=== PATIENT | male | born 1955 | race African-American/Black ===

== ENCOUNTER 2020-04-05 18:06 | Inpatient (IN) | payer OTHER ==
[~2020-04-05] VITALS: Ht 189.2 cm; Wt 92.7 kg
--- NOTE | 2020-04-05 18:31 | PHYS DOC ---
General Adult EDM: Chief Complaint: NAUSEA/VOMITING/DIARRHA HPI: HPI: 64-year-old male past medical history significant for hypertension and alcoholism, presents the ED with complaints of dark coffee-ground emesis that started earlier today, reports history of esophageal varices. Patient is a very poor historian but is alert and oriented. Patient reports his last drink was 2 nights ago although he smells of alcohol. States he has been drinking for the past 2 weeks but prior to this was clean for a year. Reports daily alcohol dependence for at least 30 years. Denies any history of blood transfusions or known cirrhosis such that he was warned of liver failure and need for liver transplant. Reports normal brown color stool. States he did pass out at home but does not think he hit his head. Drinks 1-2 pints of vodka per day. Review of Systems: Review of Systems: Constitutional: Denies fever or chills. [] Eyes: Denies change in visual acuity. [] HENT: Denies nasal congestion or sore throat. [] Respiratory: Denies cough or shortness of breath or hemoptysis Cardiovascular: Denies chest pain or edema. [] GI: Denies diarrhea, or constipation : Denies dysuria or hematuria Musculoskeletal: Denies back pain or joint pain. [] Integument: Denies rash or diaphoresis Neurologic: Denies headache, focal weakness or sensory changes or neck stiffness Endocrine: Denies polyuria or polydipsia. [] Lymphatic: Denies swollen glands. [] Psychiatric: Denies depression or anxiety. [] Heart Score: Risk Factors: Risk Factors: DM, Current or recent (<one month) smoker, HTN, HLP, family history of CAD, obesity. Risk Scores: Score 0 - 3: 2.5% MACE over next 6 weeks - Discharge Home Score 4 - 6: 20.3% MACE over next 6 weeks - Admit for Clinical Observation Score 7 - 10: 72.7% MACE over next 6 weeks - Early Invasive Strategies Allergies: Allergies: Allergies Coded Allergies Type Severity Reaction Last Updated Verified No Known Drug Allergies 04/05/20 No Physical Exam: PE: Constitutional: Smells of alcohol, thin frail appearing-does not appear in good health, coffee-ground emesis in basin approximately 75 cc, no active hematemesis HENT: Normocephalic, atraumatic, bilateral external ears normal, oropharynx dry w/dried coffee-ground blood in oral cavity, Eyes: EOMI, conjunctiva slightly yellow/jaundice with arcus senilus, no discharge. [] Neck: Normal range of motion, supple, no stridor. [] Cardiovascular: S1 and S2 present Lungs & Thorax: Speaking in full sentences, bilateral equal chest rise Abdomen: Bowel sounds normal, soft, Skin: Warm, dry, no erythema, no rash. [] Back: No tenderness, no CVA tenderness. [] Extremities: No tenderness, no cyanosis, no clubbing, ROM intact, no edema. [] Neurologic: Alert and oriented X 3, normal motor function, normal sensory function, no focal deficits noted. [] Psychologic: Affect normal, judgement normal, mood normal. [] EKG: EKG: Sinus rhythm 94 bpm, left axis deviation, QTC 450, possible T wave inversions 3 and aVF, no ST elevations or ST depressions, patient with no active chest pain Radiology/Procedures: Radiology/Procedures: []IMAGING REPORT Signed PATIENT: MOHSEN MANCINI ACCOUNT: [id number] : 1955 LOCATION: ER AGE: 64 SEX: M EXAM STATUS: REG ER ORD. PHYSICIAN: CATRACHITA BAKER DO REASON: syncope PROCEDURE: CT HEAD WO CONTRAST EXAM: CT head without contrast INDICATION: Syncope COMPARISON: None TECHNIQUE: Axial CT imaging through the head without intravenous contrast. Coronal reformats were obtained. One or more of the following individualized dose reduction techniques were utilized for this examination: 1. Automated exposure control 2. Adjustment of the mA and/or kV according to patient size 3. Use of iterative reconstruction technique. FINDINGS: The ventricles and sulci are mildly enlarged, reflecting age-related volume loss. Ceballos-white matter differentiation is maintained. There is no intracranial hemorrhage, acute infarct, or mass lesion. Basal cisterns are clear. The skull and scalp are intact. Paranasal sinuses and mastoid air cells are clear. Globes and orbits are intact.. IMPRESSION: No acute intracranial abnormality. Electronically signed by: Elba Morrell MD (04/05/2020 7:37 PM) [id number] DICTATED and SIGNED BY: ELBA MORRELL MD DATE: 04/05/201936 IMAGING REPORT Signed PATIENT: MOHSEN MANCINI ACCOUNT: [id number] : 1955 LOCATION: ER AGE: 64 SEX: M EXAM STATUS: REG ER ORD. PHYSICIAN: CATRACHITA BAKER DO REASON: upper gi bleed PROCEDURE: PORTABLE CHEST 1V EXAM: PORTABLE CHEST 1V 04/05/2020 6:34 PM CLINICAL INDICATION:Upper GI bleed COMPARISON:None TECHNIQUE:AP upright view of the chest FINDINGS:The cardiomediastinal silhouette is normal. Lungs are hypoexpanded. No consolidation, pleural effusion, or pneumothorax. No acute osseous abnormality. IMPRESSION:No acute cardiopulmonary abnormality. Electronically signed by: Elba Morrell MD (04/05/2020 8:59 PM) [id number] DICTATED and SIGNED BY: ELBA MORRELL MD DATE: 04/05/202058 Course & Med Decision Making: Course & Med Decision Making Pertinent Labs and Imaging studies reviewed. (See chart for details) Concern for upper GI bleed with active coffee-ground emesis, resolved with IV antiemetics. Started on PPI drip and broad-spectrum antibiotics given bandemia (meets sirs, no source, cxr normal, ua pending). I discussed patient's care with CHRIS Valle. Will admit n.p.o. on IV fluids to medical service for further medical management. We will also consult nephrology given renal insufficiency, no prior baseline for comparison, potassium 5.3. Patient also intoxicated. Patient stable at time of admission and agrees with this plan. I have spoken with the patient and/or caregivers. I have explained the patient's condition, diagnosis and treatment plan based on the information available to me at this time. I have answered the patient's and/or caregivers questions and answered any concerns. The patient and/or caregivers have as good an understanding of the patient's diagnosis, condition and treatment plan as can be expected at this point. The patient has been stabilized within the capability of the emergency department. The patient will be transported for further care and management or will be moved to an observation or inpatient service. I have communicated with the staff or medical practitioner taking over this patient's care. Dragon Disclaimer: Dragon Disclaimer: This electronic medical record was generated, in whole or in part, using a voice recognition dictation system. Departure Departure Impression: Primary Impression: Upper GI bleed Additional Impressions: Renal insufficiency Hyperkalemia Alcohol intoxication Bandemia without diagnosis of specific infection Disposition: 09 ADMITTED INPT THIS HOSP Admitting Physician: GOLDEN (Dr. Pascal) Condition: GUARDED PELONCATRACHITA Apr 05, 2020 18:31
[2020-04-05] MEDS ORDERED: PANTOPRAZOLE IV PUSH 40 MG VIAL. IVP ONE (18:45)
[2020-04-05] MEDS: PANTOPRAZOLE SODIUM IV DRIP 80 MG in IV NORMAL SALINE 100ML 100 ML IV SCH (18:51)
[2020-04-05] MEDS ORDERED: METOCLOPRAMIDE HCL 10 MG/2 ML VIAL. IVP ONE (19:00)
[2020-04-05] MEDS ORDERED: FAMOTIDINE 20 MG/2 ML VIAL IVP ONE (19:00)
[2020-04-05] MEDS ORDERED: MULTIVIT INFUSN,ADULT 4,VIT K 10 ML, THIAMINE INJ 100 MG, FOLIC ACID INJ 1 MG in IV NOR... IV ONE (19:00)
--- NOTE | 2020-04-05 19:40 | RAD ---
EXAM: CT head without contrast INDICATION: Syncope COMPARISON: None TECHNIQUE: Axial CT imaging through the head without intravenous contrast. Coronal reformats were obtained. One or more of the following individualized dose reduction techniques were utilized for this examination: 1. Automated exposure control 2. Adjustment of the mA and/or kV according to patient size 3. Use of iterative reconstruction technique. FINDINGS: The ventricles and sulci are mildly enlarged, reflecting age-related volume loss. Ceballos-white matter differentiation is maintained. There is no intracranial hemorrhage, acute infarct, or mass lesion. Basal cisterns are clear. The skull and scalp are intact. Paranasal sinuses and mastoid air cells are clear. Globes and orbits are intact.. IMPRESSION: No acute intracranial abnormality. Electronically signed by: Elba Morrell MD (04/05/2020 7:37 PM) [id number]
[2020-04-05 20:12] LABS: FECAL OB PT NEGATIVE (NEG)
[2020-04-05 20:14] LABS: BASO # 0.1 x10^3/uL (0.0-0.2); BASO % 1 % (0-3); EOS % 0 % (0-3); HEMATOCRIT 41.5 % (39.0-53.0); HEMOGLOBIN 13.8 g/dL (13.0-17.5); LYMPH % 8 % (24-48); MEAN CORPUSCULAR HEMOGLOBIN 32 pg (25-35); MEAN CORPUSCULAR HGB CONC 33 g/dL (31-37); MEAN CORPUSCULAR VOLUME 97 fL (79-100); MONO # 0.5 x10^3/uL (0.0-1.1); MONO % 4 % (0-9); NEUT # 10.8 x10^3/uL (1.8-7.7); NEUT % 87 % (31-73); PLATELET COUNT 165 x10^3/uL (140-400); RED BLOOD COUNT 4.28 x10^6/uL (4.30-5.70); RED CELL DISTRIBUTION WIDTH 14.2 % (11.5-14.5); WHITE BLOOD COUNT 12.4 x10^3/uL (4.0-11.0)
[2020-04-05 20:33] LABS: % BANDS 10 % (0-9); % LYMPHS 16 % (24-48); % MONOS 4 % (0-10); % SEGS 70 % (35-66)
[2020-04-05 20:34] LABS: ALBUMIN 3.6 g/dL (3.4-5.0); CALCIUM 7.8 mg/dL (8.5-10.1); CREATININE 3.6 mg/dL (0.7-1.3); DIRECT BILIRUBIN 0.3 mg/dL (0.0-0.2); GFR 20.8; PLATELET CLUMP PRESENT; PLT ESTIMATE ADEQUATE (ADEQUATE); POTASSIUM 5.3 mmol/L (3.5-5.1); TOTAL BILIRUBIN 0.7 mg/dL (0.2-1.0); TOTAL PROTEIN 6.5 g/dL (6.4-8.2)
--- NOTE | 2020-04-05 21:01 | RAD ---
EXAM: PORTABLE CHEST 1V 04/05/2020 6:34 PM CLINICAL INDICATION:Upper GI bleed COMPARISON:None TECHNIQUE:AP upright view of the chest FINDINGS:The cardiomediastinal silhouette is normal. Lungs are hypoexpanded. No consolidation, pleural effusion, or pneumothorax. No acute osseous abnormality. IMPRESSION:No acute cardiopulmonary abnormality. Electronically signed by: Elba Morrell MD (04/05/2020 8:59 PM) [id number]
[2020-04-05] MEDS ORDERED: ONDANSETRON PF 4 MG/2 ML VIAL. IV PRN (22:00)
[2020-04-05] MEDS ORDERED: VANCOMYCIN PER PHARMACY MC PRN (22:00)
[2020-04-05] MEDS ORDERED: PIP/TAZO PER PHARMACY MC PRN (22:00)
[2020-04-05] MEDS ORDERED: VANCOMYCIN 1.75 GM in IV NORMAL SALINE 500ML BAG 500 ML IV ONE (23:00)
[2020-04-05 23:15] VITALS: BP 112/50
[2020-04-05] MEDS ORDERED: IV NORMAL SALINE 1000ML BAG 1,000 ML IV ONE ×2 (23:30)
--- NOTE | 2020-04-06 00:53 | NUR ---
The patient, MOHSEN MANCINI, 64 y/o, M admitted by SILVIA LEMOS MD, was given written information regarding hospital policies, unit procedures and contact persons. Valuables were checked and left in room with patient. educated patient about POC and what to expect the next few hours. Vitals stable, laying in bed with call light in reach.
[2020-04-06] MEDS: PIPERACILLIN/TAZOBACTAM 2.25 GM in IV NORMAL SALINE 50ML 50 ML IV SCH ×3 (00:56→05:10)
[2020-04-06] MEDS: IV NORMAL SALINE 1000ML BAG 1,000 ML IV SCH ×3 (01:13→13:31)
[2020-04-06] MEDS: HYDROcodone/APAP 5/325MG 1 TAB TABLET PO PRN ×2 (02:27→12:05)
--- NOTE | 2020-04-06 02:45 | NUR ---
Pharmacy Vancomycin Dosing Note S:Consulted to monitor and dose vancomycin started 04/05/20. O:MOHSEN MANCINI is a 64 year old M with Empiric . Height: 6 feet, 2.5 inches Weight: 81.3 kg [place] Body Weight: 83.35 Adjusted Body Weight: 82.53 Dosing Weight: Actual Other Antibiotics: ZOSYN 2.25 GM Q6H LABS: Last BUN: 52 Last Creatinine: 3.6 Creatinine Clearance: 21 mL/min Last WBC: 12.4 Last Procalcitonin: Tmax (past 24 hours): Microbiology: I/O: Drug Levels: Last level: on at Last dose given 04/05/20 at 2300 Vancomycin Dosing: Loading Dose: 1750 mg x1 Dosing Weight: Actual Target Trough: 15-20 A: Based on: WT AND CRCL P: 1. Begin Vancomycin 1000 mg IV q48h 2. Follow up Trough level on 04/09/20 at 2230 3. Pharmacy will continue to monitor, follow and adjust therapy as needed. TOÑO BRADSHAW RPH, 04/06/20 0245 Signed: 04/06/20 at 0246 by TOÑO BRADSHAW RPH PHA
[2020-04-06 03:10] VITALS: BP 105/51
[2020-04-06] MEDS: PANTOPRAZOLE SODIUM IV DRIP 80 MG in IV NORMAL SALINE 100ML 100 ML IV SCH ×2 (05:10→14:45)
[2020-04-06 07:00] VITALS: BP 140/58
[2020-04-06] MEDS ORDERED: diphenhydrAMINE 50 MG/ML VIAL IVP PRN (07:30)
[2020-04-06] MEDS ORDERED: HALOPERIDOL LACTATE 5 MG/ML VIAL. IVP PRN (07:30)
[2020-04-06] MEDS ORDERED: cloNIDine HCL 0.1 MG TABLET PO PRN (07:30)
[2020-04-06] MEDS ORDERED: chlordiazePOXIDE HCL 25 MG CAPSULE PO PRN ×2 (07:30)
--- NOTE | 2020-04-06 07:33 | PDOC1 ---
History and Physical Date of Admission Date of Admission DATE: 04/06/20 TIME: 07:29 Identification/Chief Complaint Chief Complaint Nausea, vomiting Source Source: Chart review, Patient History of Present Illness History of Present Illness Patient is 64 male with past medical history of alcoholism, who presents to the ER with complaint of vomiting dark coffee-ground emesis yesterday. Patient reports associated right lower quadrant abdominal pain, diarrhea, and a syncopal episode yesterday at home. He denies head injury or loss of consciousness. Patient reportedly has increased his alcohol intake over the past 2 weeks, drinking 1-2 pints of vodka daily. He denies history of liver cirrhosis, or history of kidney disease. He denies any abdominal distention, dark stools, or fever. Past Medical History Past Medical History Hypertension, esophageal varices Past Surgical History Past Surgical History: No pertinent history Family History Family History Denies significant family Social History Smoke: 1 pack per day ALCOHOL: heavy Drugs: Marijuana Current Problem List Problem List Problems Medical Problems: (1) Alcohol intoxication Status: Acute (2) Bandemia without diagnosis of specific infection Status: Acute (3) Hyperkalemia Status: Acute (4) Renal insufficiency Status: Acute (5) Upper GI bleed Status: Acute Current Medications Current Medications Current Medications Pantoprazole Sodium (PROTONIX VIAL for IV PUSH) 80 mg 1X ONCE IVP Last administered on 04/05/20at 18:51; Start 04/05/20 at 18:45; Stop 04/05/20 at 18:46; Status DC Pantoprazole Sodium 80 mg/ Sodium Chloride 100 ml @ 10 mls/hr Q10H IV Last administered on 04/06/20at 05:10; Start 04/05/20 at 18:45; Stop 04/07/20 at 18:44 Famotidine (Pepcid Vial) 20 mg 1X ONCE IVP Last administered on 04/05/20at 19:26; Start 04/05/20 at 19:00; Stop 04/05/20 at 19:01; Status DC Metoclopramide HCl (Reglan Vial) 10 mg 1X ONCE IVP Last administered on 04/05/20at 19:29; Start 04/05/20 at 19:00; Stop 04/05/20 at 19:01; Status DC Multivitamins 10 ml/Thiamine HCl 100 mg/Folic Acid 1 mg/Sodium Chloride 1,011.2 ml @ 1,000.088 mls/hr 1X ONCE IV Last administered on 04/05/20at 19:35; Start 04/05/20 at 19:00; Stop 04/05/20 at 20:00; Status DC Ondansetron HCl (Zofran) 4 mg PRN Q8HRS PRN IV NAUSEA/VOMITING 1ST CHOICE Last administered on 04/05/20at 23:42; Start 04/05/20 at 22:00; Stop 04/06/20 at 21:59 Sodium Chloride 1,000 ml @ 100 mls/hr Q10H IV Last administered on 04/06/20at 02:08; Start 04/05/20 at 22:00; Stop 04/06/20 at 21:59 Piperacillin Sod/ Tazobactam Sod (Zosyn Per Pharmacy) 1 each PRN DAILY PRN MC SEE COMMENTS; Start 04/05/20 at 22:00 Vancomycin HCl (Vanco Per Pharmacy) 1 each PRN DAILY PRN MC SEE COMMENTS Last administered on 04/06/20at 02:45; Start 04/05/20 at 22:00 Piperacillin Sod/ Tazobactam Sod 2.25 gm/Sodium Chloride 50 ml @ 100 mls/hr Q6HRS IV Last administered on 04/06/20at 05:10; Start 04/05/20 at 23:00 Vancomycin HCl 1.75 gm/Sodium Chloride 500 ml @ 250 mls/hr 1X ONCE IV Last administered on 04/05/20at 23:27; Start 04/05/20 at 23:00; Stop 04/06/20 at 00:59; Status DC Sodium Chloride 1,000 ml @ 1,000 mls/hr 1X ONCE IV Last administered on 04/05/20at 23:26; Start 04/05/20 at 23:30; Stop 04/06/20 at 00:29; Status DC Sodium Chloride 1,000 ml @ 1,000 mls/hr 1X ONCE IV Last administered on 04/06/20at 00:49; Start 04/05/20 at 23:30; Stop 04/06/20 at 00:29; Status DC Acetaminophen/ Hydrocodone Bitart (Lortab 5/325) 1 tab PRN Q4HRS PRN PO MODERATE PAIN 4-6 Last administered on 04/06/20at 02:27; Start 04/06/20 at 02:15 Vancomycin HCl 1 gm/Sodium Chloride 250 ml @ 250 mls/hr Q48H IV ; Start 04/07/20 at 23:00 Vancomycin HCl (Vancomycin Trough Level) 1 each 1X ONCE MC ; Start 04/09/20 at 22:30; Stop 04/09/20 at 22:31 Allergies Allergies: Coded Allergies: No Known Drug Allergies (Unverified , 04/05/20) ROS Review of System GENERAL: No history of weight change, weakness or fevers. SKIN: No bruising, hair changes or rashes. EYES: No blurred, double or loss of vision. NOSE AND THROAT: No history of nosebleeds, hoarseness or sore throat. HEART: Denies chest pain, denies palpitations. LUNGS: Denies cough, hemoptysis, wheezing or shortness of breath. GASTROINTESTINAL: Nausea, vomiting, diarrhea, right lower quadrant abdominal pain. GENITOURINARY: Denies dysuria, frequency, urgency, hematuria. NEUROLOGIC: Denies history of numbness, tingling, tremor or weakness. PSYCHIATRIC: Denies anxiety, denies depression. ENDOCRINE: No history of heat or cold intolerance, polyuria or polydipsia. EXTREMITIES: Denies muscle weakness, joint pain, pain on walking or stiffness. Physical Exam Physical Exam General: Alert, Oriented X3, Cooperative, mild distress HEENT: PERRLA, EOMI Lungs: Clear to auscultation, Normal air movement Heart: RRR, no murmurs Cardiovascular: S1, S2 Abdomen: Right lower quadrant abdominal tenderness. No appreciable fluid wave. Extremities: No clubbing, No cyanosis Skin: No rashes, No significant lesion Neuro: Normal speech, Normal tone, Sensation intact Psych/Mental Status: Mental status NL, Mood NL Vitals Vitals Vital Signs Date Time Temp Pulse Resp B/P (MAP) Pulse Ox O2 Delivery O2 Flow Rate FiO2 04/06/20 03:30 Room Air 04/06/20 03:10 98.0 94 22 105/51 (69) 96 98.0 Labs Labs Laboratory Tests Test 04/05/20 19:55 04/05/20 20:00 04/06/20 00:56 White Blood Count 12.4 x10^3/uL (4.0-11.0) Red Blood Count 4.28 x10^6/uL (4.30-5.70) Hemoglobin 13.8 g/dL (13.0-17.5) Hematocrit 41.5 % (39.0-53.0) Mean Corpuscular Volume 97 fL (79-100) Mean Corpuscular Hemoglobin 32 pg (25-35) Mean Corpuscular Hemoglobin Concent 33 g/dL (31-37) Red Cell Distribution Width 14.2 % (11.5-14.5) Platelet Count 165 x10^3/uL (140-400) Neutrophils (%) (Auto) 87 % (31-73) Lymphocytes (%) (Auto) 8 % (24-48) Monocytes (%) (Auto) 4 % (0-9) Eosinophils (%) (Auto) 0 % (0-3) Basophils (%) (Auto) 1 % (0-3) Neutrophils # (Auto) 10.8 x10^3/uL (1.8-7.7) Lymphocytes # (Auto) 1.0 x10^3/uL (1.0-4.8) Monocytes # (Auto) 0.5 x10^3/uL (0.0-1.1) Eosinophils # (Auto) 0.0 x10^3/uL (0.0-0.7) Basophils # (Auto) 0.1 x10^3/uL (0.0-0.2) Segmented Neutrophils % 70 % (35-66) Band Neutrophils % 10 % (0-9) Lymphocytes % 16 % (24-48) Monocytes % 4 % (0-10) Platelet Estimate Adequate (ADEQUATE) Platelet Clumps, EDTA Present Prothrombin Time 16.0 SEC (11.7-14.0) Prothromb Time International Ratio 1.3 (0.8-1.1) Activated Partial Thromboplast Time 25 SEC (24-38) Sodium Level 144 mmol/L (136-145) Potassium Level 5.3 mmol/L (3.5-5.1) Chloride Level 96 mmol/L (98-107) Carbon Dioxide Level 8 mmol/L (21-32) Anion Gap 40 (6-14) Blood Urea Nitrogen 52 mg/dL (8-26) Creatinine 3.6 mg/dL (0.7-1.3) Estimated GFR (Cockcroft-Gault) 20.8 Glucose Level 66 mg/dL (70-99) Lactic Acid Level 8.0 mmol/L (0.4-2.0) 6.5 mmol/L (0.4-2.0) Calcium Level 7.8 mg/dL (8.5-10.1) Magnesium Level 3.1 mg/dL (1.8-2.4) Total Bilirubin 0.7 mg/dL (0.2-1.0) Direct Bilirubin 0.3 mg/dL (0.0-0.2) Aspartate Amino Transf (AST/SGOT) 149 U/L (15-37) Alanine Aminotransferase (ALT/SGPT) 81 U/L (16-63) Alkaline Phosphatase 65 U/L (46-116) Total Protein 6.5 g/dL (6.4-8.2) Albumin 3.6 g/dL (3.4-5.0) Ethyl Alcohol Level 165 mg/dL (0-10) Stool Occult Blood Negative (NEG) Laboratory Tests Test 04/05/20 19:55 04/05/20 20:00 04/06/20 00:56 White Blood Count 12.4 x10^3/uL (4.0-11.0) Red Blood Count 4.28 x10^6/uL (4.30-5.70) Hemoglobin 13.8 g/dL (13.0-17.5) Hematocrit 41.5 % (39.0-53.0) Mean Corpuscular Volume 97 fL (79-100) Mean Corpuscular Hemoglobin 32 pg (25-35) Mean Corpuscular Hemoglobin Concent 33 g/dL (31-37) Red Cell Distribution Width 14.2 % (11.5-14.5) Platelet Count 165 x10^3/uL (140-400) Neutrophils (%) (Auto) 87 % (31-73) Lymphocytes (%) (Auto) 8 % (24-48) Monocytes (%) (Auto) 4 % (0-9) Eosinophils (%) (Auto) 0 % (0-3) Basophils (%) (Auto) 1 % (0-3) Neutrophils # (Auto) 10.8 x10^3/uL (1.8-7.7) Lymphocytes # (Auto) 1.0 x10^3/uL (1.0-4.8) Monocytes # (Auto) 0.5 x10^3/uL (0.0-1.1) Eosinophils # (Auto) 0.0 x10^3/uL (0.0-0.7) Basophils # (Auto) 0.1 x10^3/uL (0.0-0.2) Segmented Neutrophils % 70 % (35-66) Band Neutrophils % 10 % (0-9) Lymphocytes % 16 % (24-48) Monocytes % 4 % (0-10) Platelet Estimate Adequate (ADEQUATE) Platelet Clumps, EDTA Present Prothrombin Time 16.0 SEC (11.7-14.0) Prothromb Time International Ratio 1.3 (0.8-1.1) Activated Partial Thromboplast Time 25 SEC (24-38) Sodium Level 144 mmol/L (136-145) Potassium Level 5.3 mmol/L (3.5-5.1) Chloride Level 96 mmol/L (98-107) Carbon Dioxide Level 8 mmol/L (21-32) Anion Gap 40 (6-14) Blood Urea Nitrogen 52 mg/dL (8-26) Creatinine 3.6 mg/dL (0.7-1.3) Estimated GFR (Cockcroft-Gault) 20.8 Glucose Level 66 mg/dL (70-99) Lactic Acid Level 8.0 mmol/L (0.4-2.0) 6.5 mmol/L (0.4-2.0) Calcium Level 7.8 mg/dL (8.5-10.1) Magnesium Level 3.1 mg/dL (1.8-2.4) Total Bilirubin 0.7 mg/dL (0.2-1.0) Direct Bilirubin 0.3 mg/dL (0.0-0.2) Aspartate Amino Transf (AST/SGOT) 149 U/L (15-37) Alanine Aminotransferase (ALT/SGPT) 81 U/L (16-63) Alkaline Phosphatase 65 U/L (46-116) Total Protein 6.5 g/dL (6.4-8.2) Albumin 3.6 g/dL (3.4-5.0) Ethyl Alcohol Level 165 mg/dL (0-10) Stool Occult Blood Negative (NEG) Images Images EXAM: PORTABLE CHEST 1V 04/05/2020 6:34 PM CLINICAL INDICATION:Upper GI bleed COMPARISON:None TECHNIQUE:AP upright view of the chest FINDINGS:The cardiomediastinal silhouette is normal. Lungs are hypoexpanded. No consolidation, pleural effusion, or pneumothorax. No acute osseous abnormality. IMPRESSION:No acute cardiopulmonary abnormality. EXAM: CT head without contrast INDICATION: Syncope COMPARISON: None TECHNIQUE: Axial CT imaging through the head without intravenous contrast. Coronal reformats were obtained. One or more of the following individualized dose reduction techniques were utilized for this examination: 1. Automated exposure control 2. Adjustment of the mA and/or kV according to patient size 3. Use of iterative reconstruction technique. FINDINGS: The ventricles and sulci are mildly enlarged, reflecting age-related volume loss. Ceballos-white matter differentiation is maintained. There is no intracranial hemorrhage, acute infarct, or mass lesion. Basal cisterns are clear. The skull and scalp are intact. Paranasal sinuses and mastoid air cells are clear. Globes and orbits are intact.. IMPRESSION: No acute intracranial abnormality. VTE Prophylaxis Ordered VTE Prophylaxis Devices: Yes VTE Pharmacological Prophylaxi: No Assessment/Plan Assessment/Plan Upper GI bleed Leukocytosis Bandemia NICKI Lactic acidosis Alcohol intoxication History of alcohol abuse Transaminitis Plan: Consult GI PPI drip Patient received Zosyn and vancomycin in the ER Continue broad-spectrum antibiotics with Rocephin due to GI bleeding concern for SBP Will obtain noncontrast CT abdomen Blood cultures pending Stool occult blood negative Alcohol withdrawal treatment with daily banana bag, thiamine, folic acid, Ativan as needed Consult nephrology. Creatinine 3.6 with unknown baseline. Continue with IV fluids FEN - NPO PPX - SCDs FULL CODE Dispo - inpatient for above 35 minutes of critical care time was spent providing IV fluids, IV insulin, sodium bicarbonate, calcium gluconate, and direct patient supervision. Justifications for Admission Other Justification NAS GREGORY MD Apr 06, 2020 07:33
[2020-04-06 08:09] LABS: BASO % 0 % (0-3); EOS % 0 % (0-3); HEMATOCRIT 34.7 % (39.0-53.0); HEMOGLOBIN 11.7 g/dL (13.0-17.5); LYMPH # 0.4 x10^3/uL (1.0-4.8); LYMPH % 7 % (24-48); MEAN CORPUSCULAR HEMOGLOBIN 32 pg (25-35); MEAN CORPUSCULAR HGB CONC 34 g/dL (31-37); MEAN CORPUSCULAR VOLUME 95 fL (79-100); MONO # 0.4 x10^3/uL (0.0-1.1); MONO % 6 % (0-9); NEUT # 5.9 x10^3/uL (1.8-7.7); NEUT % 88 % (31-73); PLATELET COUNT 93 x10^3/uL (140-400); RED BLOOD COUNT 3.65 x10^6/uL (4.30-5.70); RED CELL DISTRIBUTION WIDTH 13.8 % (11.5-14.5); WHITE BLOOD COUNT 6.7 x10^3/uL (4.0-11.0)
[2020-04-06 08:13] LABS: C-REACTIVE PROTEIN 17.8 mg/L (0-3.3); CALCIUM 6.5 mg/dL (8.5-10.1); GFR 18.4
[2020-04-06 08:21] LABS: POTASSIUM 6.6 mmol/L (3.5-5.1)
[2020-04-06] MEDS ORDERED: DEXTROSE 50% 25 GM / 50ML DISP.SYRIN. IV ONE (08:30)
[2020-04-06] MEDS ORDERED: DEXTROSE 50% 25 GM / 50ML DISP.SYRIN. IV PRN (08:45)
[2020-04-06] MEDS ORDERED: INSULIN REGULAR 100 UNIT/ML 3ML VIAL. IV ONE (09:00)
[2020-04-06] MEDS ORDERED: CALCIUM GLUCONATE 1,000 MG/10 ML VIAL. IVP ONE (09:00)
[2020-04-06] MEDS ORDERED: SODIUM BICARB ADULT 8.4% 50 MEQ/50 ML DISP.SYRIN. IV ONE (09:00)
--- NOTE | 2020-04-06 09:29 | PDOC2 ---
GI CONSULT Date of Service: DATE: 04/06/20 TIME: 09:29 Reason For Consult: UGIB HPI: HPI: 64 y/o male admitted through ER. Reports onset of "brown" emesis yesterday. Poor appetite before vomiting began. Now has some abdominal soreness and hiccups. Denies reflux/heartburn, dysphagia, chronic n/v, chronic abd pain, diarrhea, constipation, hematochezia, or melena. Thinks he's lost weight. Gives h/o esophageal varices diagnosed on EGD at the [facility] "sometimes in the ." Not sure about past banding, no EGD since. Also had a colono scopy at the [facility] at some point. Thinks he's supposed to have some sort of "check-up" at the [facility] in 04/2020. Denies GB, liver, pancreas, and PUD history. 1-2 pints of vodka daily. No regular use of NSAIDs. 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 PMH: PMH: HTN, depression/anxiety, chronic pain on muscle relaxer, PTSD, jaw injury/trauma FH: Family History: No pertinent hx (denies liver disease and GI cancers) Social History: Smoke: Quit ALCOHOL: heavy Drugs: None ROS: GEN: Denies fevers, chills, sweats HEENT: Denies blurred vision, sore throat CV: Denies chest pain RESP: Denies shortness of air, cough GI: Per HPI : Denies hematuria, dysuria ENDO: +weight loss NEURO: Denies confusion, dizziness MSK: Denies weakness, joint pain/swelling SKIN: Denies jaundice, pruritus Vitals: Vitals: Vital Signs Date Time Temp Pulse Resp B/P (MAP) Pulse Ox O2 Delivery O2 Flow Rate FiO2 04/06/20 08:00 Room Air 04/06/20 07:00 99.0 90 22 140/58 (85) 98 99.0 Labs: Labs: Laboratory Tests Test 04/05/20 19:55 04/05/20 20:00 04/06/20 00:56 04/06/20 07:30 White Blood Count 12.4 x10^3/uL (4.0-11.0) 6.7 x10^3/uL (4.0-11.0) Red Blood Count 4.28 x10^6/uL (4.30-5.70) 3.65 x10^6/uL (4.30-5.70) Hemoglobin 13.8 g/dL (13.0-17.5) 11.7 g/dL (13.0-17.5) Hematocrit 41.5 % (39.0-53.0) 34.7 % (39.0-53.0) Mean Corpuscular Volume 97 fL (79-100) 95 fL (79-100) Mean Corpuscular Hemoglobin 32 pg (25-35) 32 pg (25-35) Mean Corpuscular Hemoglobin Concent 33 g/dL (31-37) 34 g/dL (31-37) Red Cell Distribution Width 14.2 % (11.5-14.5) 13.8 % (11.5-14.5) Platelet Count 165 x10^3/uL (140-400) 93 x10^3/uL (140-400) Neutrophils (%) (Auto) 87 % (31-73) 88 % (31-73) Lymphocytes (%) (Auto) 8 % (24-48) 7 % (24-48) Monocytes (%) (Auto) 4 % (0-9) 6 % (0-9) Eosinophils (%) (Auto) 0 % (0-3) 0 % (0-3) Basophils (%) (Auto) 1 % (0-3) 0 % (0-3) Neutrophils # (Auto) 10.8 x10^3/uL (1.8-7.7) 5.9 x10^3/uL (1.8-7.7) Lymphocytes # (Auto) 1.0 x10^3/uL (1.0-4.8) 0.4 x10^3/uL (1.0-4.8) Monocytes # (Auto) 0.5 x10^3/uL (0.0-1.1) 0.4 x10^3/uL (0.0-1.1) Eosinophils # (Auto) 0.0 x10^3/uL (0.0-0.7) 0.0 x10^3/uL (0.0-0.7) Basophils # (Auto) 0.1 x10^3/uL (0.0-0.2) 0.0 x10^3/uL (0.0-0.2) Segmented Neutrophils % 70 % (35-66) Band Neutrophils % 10 % (0-9) Lymphocytes % 16 % (24-48) Monocytes % 4 % (0-10) Platelet Estimate Adequate (ADEQUATE) Platelet Clumps, EDTA Present Prothrombin Time 16.0 SEC (11.7-14.0) Prothromb Time International Ratio 1.3 (0.8-1.1) Activated Partial Thromboplast Time 25 SEC (24-38) Sodium Level 144 mmol/L (136-145) 142 mmol/L (136-145) Potassium Level 5.3 mmol/L (3.5-5.1) 6.6 mmol/L (3.5-5.1) Chloride Level 96 mmol/L (98-107) 105 mmol/L (98-107) Carbon Dioxide Level 8 mmol/L (21-32) 10 mmol/L (21-32) Anion Gap 40 (6-14) 27 (6-14) Blood Urea Nitrogen 52 mg/dL (8-26) 61 mg/dL (8-26) Creatinine 3.6 mg/dL (0.7-1.3) 4.0 mg/dL (0.7-1.3) Estimated GFR (Cockcroft-Gault) 20.8 18.4 Glucose Level 66 mg/dL (70-99) 110 mg/dL (70-99) Lactic Acid Level 8.0 mmol/L (0.4-2.0) 6.5 mmol/L (0.4-2.0) 2.3 mmol/L (0.4-2.0) Calcium Level 7.8 mg/dL (8.5-10.1) 6.5 mg/dL (8.5-10.1) Magnesium Level 3.1 mg/dL (1.8-2.4) Total Bilirubin 0.7 mg/dL (0.2-1.0) Direct Bilirubin 0.3 mg/dL (0.0-0.2) Aspartate Amino Transf (AST/SGOT) 149 U/L (15-37) Alanine Aminotransferase (ALT/SGPT) 81 U/L (16-63) Alkaline Phosphatase 65 U/L (46-116) Total Protein 6.5 g/dL (6.4-8.2) Albumin 3.6 g/dL (3.4-5.0) Ethyl Alcohol Level 165 mg/dL (0-10) Stool Occult Blood Negative (NEG) C-Reactive Protein, Quantitative 17.8 mg/L (0-3.3) Allergies: Coded Allergies: No Known Drug Allergies (Unverified , 04/05/20) Medications: Current Medications Medications (Trade) Dose Ordered Sig/Camille Route PRN Reason Start Time Stop Time Status Last Admin Dose Admin Pantoprazole Sodium (PROTONIX VIAL for IV PUSH) 80 mg 1X ONCE IVP 04/05/20 18:45 04/05/20 18:46 DC 04/05/20 18:51 Pantoprazole Sodium 80 mg/ Sodium Chloride 100 ml @ 10 mls/hr Q10H IV 04/05/20 18:45 04/07/20 18:44 04/06/20 05:10 Famotidine (Pepcid Vial) 20 mg 1X ONCE IVP 04/05/20 19:00 04/05/20 19:01 DC 04/05/20 19:26 Metoclopramide HCl (Reglan Vial) 10 mg 1X ONCE IVP 04/05/20 19:00 04/05/20 19:01 DC 04/05/20 19:29 Multivitamins 10 ml/Thiamine HCl 100 mg/Folic Acid 1 mg/Sodium Chloride 1,011.2 ml @ 1,000.088 mls/hr 1X ONCE IV 04/05/20 19:00 04/05/20 20:00 DC 04/05/20 19:35 Ondansetron HCl (Zofran) 4 mg PRN Q8HRS PRN IV NAUSEA/VOMITING 1ST CHOICE 04/05/20 22:00 04/06/20 08:21 DC 04/05/20 23:42 Sodium Chloride 1,000 ml @ 100 mls/hr Q10H IV 04/05/20 22:00 04/06/20 21:59 04/06/20 02:08 Vancomycin HCl (Vanco Per Pharmacy) 1 each PRN DAILY PRN MC SEE COMMENTS 04/05/20 22:00 04/06/20 08:21 DC 04/06/20 02:45 Piperacillin Sod/ Tazobactam Sod 2.25 gm/Sodium Chloride 50 ml @ 100 mls/hr Q6HRS IV 04/05/20 23:00 04/06/20 08:16 DC 04/06/20 05:10 Vancomycin HCl 1.75 gm/Sodium Chloride 500 ml @ 250 mls/hr 1X ONCE IV 04/05/20 23:00 04/06/20 00:59 DC 04/05/20 23:27 Sodium Chloride 1,000 ml @ 1,000 mls/hr 1X ONCE IV 04/05/20 23:30 04/06/20 00:29 DC 04/05/20 23:26 Sodium Chloride 1,000 ml @ 1,000 mls/hr 1X ONCE IV 04/05/20 23:30 04/06/20 00:29 DC 04/06/20 00:49 Acetaminophen/ Hydrocodone Bitart (Lortab 5/325) 1 tab PRN Q4HRS PRN PO MODERATE PAIN 4-6 04/06/20 02:15 04/06/20 02:27 Dextrose (Dextrose 50%-Water Syringe) 25 gm 1X ONCE IV 04/06/20 08:30 04/06/20 08:32 DC 04/06/20 08:56 Insulin Human Regular (HumuLIN R VIAL) 5 unit 1X ONCE IV 04/06/20 09:00 04/06/20 09:01 DC 04/06/20 09:00 Sodium Bicarbonate (Sodium Bicarb Adult 8.4% Syr) 50 meq 1X ONCE IV 04/06/20 09:00 04/06/20 09:01 DC 04/06/20 08:56 Calcium Gluconate (Calcium Gluconate) 1,000 mg 1X ONCE IVP 04/06/20 09:00 04/06/20 09:01 DC 04/06/20 08:56 Imaging: Imaging: CT head IMPRESSION: No acute intracranial abnormality. CXR IMPRESSION:No acute cardiopulmonary abnormality. CT A/P pending PE: GEN: appears anxious HEENT: Atraumatic, PERRL LUNGS: diminished anteriorly HEART: RRR ABD: quiet, soft, periumbilical/epigastric discomfort - mild/seems muscular EXTREMITY: No edema SKIN: No rashes, no jaundice NEURO/PSYCH: A & O 3 A/P: A/P: Vomiting - concern per staff for "coffee-ground emesis" +alcohol Anemia, thrombocytopenia, mild coagulopathy, Hemoccult negative, elevated AST and ALT NICKI, hyperkalemia, lactic acidosis, leukocytosis H/o esophageal varices - reportedly diagnosed @ [facility] CRC screen - reportedly normal in the past -- Agree w/ PPI. Keep NPO. Await CT. Withdrawal precautions per primary. Will ask for records from [facility]. TIMA MATTHEWS Apr 06, 2020 09:29
[2020-04-06] MEDS: MULTIVIT INFUSN,ADULT 4,VIT K 10 ML, THIAMINE INJ 100 MG, FOLIC ACID INJ 1 MG in IV NOR... IV SCH (10:17)
--- NOTE | 2020-04-06 10:27 | RAD ---
EXAM: CT Abdomen and Pelvis without IV contrast INDICATION: Reason: Right lower quadrant abdominal pain- 2N [id number] / Spl. Instructions: / History: TECHNIQUE: Multi-detector row CT images were acquired from the lung bases through the abdomen and pelvis without the use of IV contrast. Sagittal and coronal images were acquired from the transaxial data. All CT scans performed at this facility utilize dose optimization techniques as appropriate to the exam, including the following: Automated exposure control and adjustment of the mA and/or KV according to patient size (this includes techniques or standardized protocols for targeted exams where dose is indication/reason for exam). ORAL CONTRAST: None COMPARISON: None FINDINGS: The absence of IV contrast limits evaluation of soft tissue pathology. LOWER CHEST: Unremarkable LIVER: Severe diffuse hepatic steatosis. BILIARY SYSTEM: Gallbladder mildly distended but otherwise unremarkable. Bile ducts are not dilated. PANCREAS: Unremarkable SPLEEN: Unremarkable ADRENALS: Unremarkable KIDNEYS & URETERS: Right greater than left bilateral perirenal soft tissue stranding is present. There is an ovoid soft tissue nodule in the inferior pole right kidney that is at least 1.6 cm in diameter and obscured by perinephric soft tissue stranding. BLADDER: Unremarkable REPRODUCTIVE ORGANS: Unremarkable GASTROINTESTINAL: Diffuse wall thickening in the large bowel (primarily right-sided) is present along with extensive colonic diverticulosis. There is equivocal thickening of the wall of the terminal ileum in the setting of under distention. Stomach and small bowel are otherwise unremarkable. Evaluation limited by lack of enteric contrast. The appendix is normal. MESENTERY/PERITONEUM/RETROPERITONEUM: Unremarkable VASCULAR: Unremarkable LYMPH NODES: No adenopathy OSSEOUS & SOFT TISSUES: Unremarkable IMPRESSION: 1. Mild diffuse colitis, with equivocal involvement of the terminal ileum. No bowel obstruction or perforation. 2. Severe hepatic steatosis. 3. Right greater than left bilateral perirenal soft tissue stranding. This is nonspecific but chronic kidney disease can appear similar. Acute renal inflammation, infection or hemorrhage are differential considerations. Electronically signed by: Stephany Noonan MD (04/06/2020 10:24 AM) [id number]
[2020-04-06] MEDS ORDERED: FUROSEMIDE 40 MG/4 ML VIAL. IVP ONE (10:30)
--- NOTE | 2020-04-06 10:33 | NUR ---
SS following for discharge planning. SS reviewed pt chart and discussed with pt RN. Pt is from home and is currently on room air. Self pay. Pt on IV Rocephin and having critical potassium this morning. Pt has ETOH. PAT team referral made for assessment and recommendations. GI following. SS will continue to follow for discharge planning.
[2020-04-06 11:00] VITALS: BP 154/67
[2020-04-06] MEDS: INSULIN LISPRO 300 UNITS/3 ML VIAL. SQ SCH ×2 (11:50→16:58)
[2020-04-06] MEDS ORDERED: cefTRIAXone IV Push 1 GM VIAL. IVP SCH ×2 (12:00)
--- NOTE | 2020-04-06 12:44 | PDOC2 ---
CONSULT Date of Consult Date of Consult DATE: 04/06/20 TIME: 12:29 Reason for Consult Reason for Consult: Renal insufficiency, hyperkalemia Referring Physician Referring Physician: OLIVIA Identification/Chief Complaint Chief Complaint Brown-colored emesis Source Source: Chart review, Patient History of Present Illness Reason for Visit: Pepe is a pleasant 64-year-old -[place] gentleman who gets his care at the [facility]. He is not aware of known renal insufficiency per se. Records from the [facility] ER requested but not available for review at this time. He does have a history of drinking 1 to 2 pints of vodka on a daily basis. He presented to the hospital with complaints of dark coffee-ground emesis and right lower quadrant abdominal pain. He has had occasional diarrhea but mostly nausea vomiting. He claims he got so weak that he felt like he almost had a syncopal episode. He has not been able to keep fluids down either. He has been urinating some but appears to be scant. Labs this morning showed a potassium of 6 6 with a bicarb of 10 and gap of 27. His lactate was noted to be elevated but is down to 2.3 on most recent check. His hyperkalemia was treated with temporizing measures and repeat labs have been requested. He has been evaluated by GI and is expected to undergo endoscopy tomorrow. His BUN is 61 creatinine 4.0 at this time. I discussed his electrolyte situation with him and offered round of dialysis to definitively address bicarb and potassium. He appears to be on a banana bag at this time. Patient declined dialysis he claims he is seen many of his friends go on dialysis and while on it and hence does not want to do that. Past Medical History Past Medical History Alcoholism PTSD Anxiety depression Previous GI bleed with known esophageal varices History of hypertension Heart murmur Other cardiac disorders Past Surgical History Past Surgical History: No pertinent history Family History Family History: Kidney Disease (Denies history in the family) Social History Quit ALCOHOL: heavy Drugs: None Lives: Alone Current Problem List Problem List Problems Medical Problems: (1) Alcohol intoxication Status: Acute (2) Bandemia without diagnosis of specific infection Status: Acute (3) Hyperkalemia Status: Acute (4) Renal insufficiency Status: Acute (5) Upper GI bleed Status: Acute Current Medications Current Medications Current Medications Pantoprazole Sodium (PROTONIX VIAL for IV PUSH) 80 mg 1X ONCE IVP Last administered on 04/05/20at 18:51; Start 04/05/20 at 18:45; Stop 04/05/20 at 18:46; Status DC Pantoprazole Sodium 80 mg/ Sodium Chloride 100 ml @ 10 mls/hr Q10H IV Last administered on 04/06/20at 05:10; Start 04/05/20 at 18:45; Stop 04/07/20 at 18:44 Famotidine (Pepcid Vial) 20 mg 1X ONCE IVP Last administered on 04/05/20at 19:26; Start 04/05/20 at 19:00; Stop 04/05/20 at 19:01; Status DC Metoclopramide HCl (Reglan Vial) 10 mg 1X ONCE IVP Last administered on 04/05/20at 19:29; Start 04/05/20 at 19:00; Stop 04/05/20 at 19:01; Status DC Multivitamins 10 ml/Thiamine HCl 100 mg/Folic Acid 1 mg/Sodium Chloride 1,011.2 ml @ 1,000.088 mls/hr 1X ONCE IV Last administered on 04/05/20at 19:35; Start 04/05/20 at 19:00; Stop 04/05/20 at 20:00; Status DC Ondansetron HCl (Zofran) 4 mg PRN Q8HRS PRN IV NAUSEA/VOMITING 1ST CHOICE Last administered on 04/05/20at 23:42; Start 04/05/20 at 22:00; Stop 04/06/20 at 08:21; Status DC Sodium Chloride 1,000 ml @ 100 mls/hr Q10H IV Last administered on 04/06/20at 02:08; Start 04/05/20 at 22:00; Stop 04/06/20 at 21:59 Piperacillin Sod/ Tazobactam Sod (Zosyn Per Pharmacy) 1 each PRN DAILY PRN MC SEE COMMENTS; Start 04/05/20 at 22:00; Stop 04/06/20 at 08:21; Status DC Vancomycin HCl (Vanco Per Pharmacy) 1 each PRN DAILY PRN MC SEE COMMENTS Last administered on 04/06/20at 02:45; Start 04/05/20 at 22:00; Stop 04/06/20 at 08:21; Status DC Piperacillin Sod/ Tazobactam Sod 2.25 gm/Sodium Chloride 50 ml @ 100 mls/hr Q6HRS IV Last administered on 04/06/20at 05:10; Start 04/05/20 at 23:00; Stop 04/06/20 at 08:16; Status DC Vancomycin HCl 1.75 gm/Sodium Chloride 500 ml @ 250 mls/hr 1X ONCE IV Last administered on 04/05/20at 23:27; Start 04/05/20 at 23:00; Stop 04/06/20 at 00:59; Status DC Sodium Chloride 1,000 ml @ 1,000 mls/hr 1X ONCE IV Last administered on 04/05/20at 23:26; Start 04/05/20 at 23:30; Stop 04/06/20 at 00:29; Status DC Sodium Chloride 1,000 ml @ 1,000 mls/hr 1X ONCE IV Last administered on 04/06/20at 00:49; Start 04/05/20 at 23:30; Stop 04/06/20 at 00:29; Status DC Acetaminophen/ Hydrocodone Bitart (Lortab 5/325) 1 tab PRN Q4HRS PRN PO MODE RATE PAIN 4-6 Last administered on 04/06/20at 12:05; Start 04/06/20 at 02:15 Vancomycin HCl 1 gm/Sodium Chloride 250 ml @ 250 mls/hr Q48H IV ; Start 04/07/20 at 23:00; Stop 04/06/20 at 08:21; Status DC Vancomycin HCl (Vancomycin Trough Level) 1 each 1X ONCE MC ; Start 04/09/20 at 22:30; Stop 04/06/20 at 08:21; Status DC Multivitamins 10 ml/Thiamine HCl 100 mg/Folic Acid 1 mg/Sodium Chloride 1,011.2 ml @ 100 mls/ hr DAILY IV Last administered on 04/06/20at 10:17; Start 04/06/20 at 10:00; Stop 04/10/20 at 19:07 Multivitamins (Thera M Plus) 1 tab DAILY PO ; Start 04/11/20 at 09:00 Folic Acid (Folic Acid) 1 mg DAILY PO ; Start 04/11/20 at 09:00 Chlordiazepoxide (Librium) 50 mg PRN Q1HR PRN PO For CIWA 8-14; Start 04/06/20 at 07:30; Stop 04/06/20 at 07:35; Status DC Chlordiazepoxide (Librium) 100 mg PRN Q1HR PRN PO For CIWA 15 or greater; Start 04/06/20 at 07:30; Stop 04/06/20 at 07:35; Status DC Lorazepam (Ativan) 4 mg PRN Q1HR PRN PO For CIWA 8-14; Start 04/06/20 at 07:30 Lorazepam (Ativan) 8 mg PRN Q1HR PRN PO For CIWA 15 or greater; Start 04/06/20 at 07:30 Lorazepam (Ativan Inj) 2 mg PRN Q1HR PRN IV For CIWA 8-14; Start 04/06/20 at 07:30 Lorazepam (Ativan Inj) 4 mg PRN Q1HR PRN IV For CIWA 15 or greater; Start 04/06/20 at 07:30 Haloperidol Lactate (Haldol Inj) 5 mg PRN Q4HRS PRN IVP Hallucinatns,Confusn,Delirium; Start 04/06/20 at 07:30 Diphenhydramine HCl (Benadryl) 25 mg PRN Q15MIN PRN IVP EPS symptoms 2'Haldol admin; Start 04/06/20 at 07:30 Clonidine HCl (Catapres) 0.1 mg PRN Q1HR PRN PO SBP > 180 or DBP > 100, MRX3; Start 04/06/20 at 07:30 Lorazepam (Ativan Inj) 2 mg PRN Q15MIN PRN IV SEE COMMENTS; Start 04/06/20 at 07:30; Status UNV Lorazepam (Ativan Inj) 4 mg PRN Q15MIN PRN IV SEE COMMENTS; Start 04/06/20 at 07:30; Status UNV Ceftriaxone Sodium (Rocephin) 1 gm Q24H IVP ; Start 04/06/20 at 12:00; Stop 04/06/20 at 09:54; Status DC Dextrose (Dextrose 50%-Water Syringe) 25 gm 1X ONCE IV Last administered on 04/06/20at 08:56; Start 04/06/20 at 08:30; Stop 04/06/20 at 08:32; Status DC Insulin Human Regular (HumuLIN R VIAL) 5 unit 1X ONCE IV Last administered on 04/06/20at 09:00; Start 04/06/20 at 09:00; Stop 04/06/20 at 09:01; Status DC Sodium Bicarbonate (Sodium Bicarb Adult 8.4% Syr) 50 meq 1X ONCE IV Last administered on 04/06/20at 08:56; Start 04/06/20 at 09:00; Stop 04/06/20 at 09:01; Status DC Calcium Gluconate (Calcium Gluconate) 1,000 mg 1X ONCE IVP Last administered on 04/06/20at 08:56; Start 04/06/20 at 09:00; Stop 04/06/20 at 09:01; Status DC Insulin Human Lispro (HumaLOG) 0-5 UNITS TIDWMEALS SQ ; Start 04/06/20 at 12:00 Dextrose (Dextrose 50%-Water Syringe) 12.5 gm PRN Q15MIN PRN IV SEE COMMENTS; Start 04/06/20 at 08:45 Furosemide (Lasix) 40 mg 1X ONCE IVP Last administered on 04/06/20at 10:17; Start 04/06/20 at 10:30; Stop 04/06/20 at 10:31; Status DC Ceftriaxone Sodium (Rocephin) 2 gm Q24H IVP Last administered on 04/06/20at 12:00; Start 04/06/20 at 12:00 Allergies Allergies: Coded Allergies: No Known Drug Allergies (Unverified , 04/05/20) ROS Review of System 14 point review of systems reviewed with the patient and is grossly negative other than as mentioned under HPI. Physical Exam Physical Exam General Appearance: Awake Alert Oriented x 3 In no Distress, somewhat ill appearing gentleman Eyes: VIsion Unchanged Conjunctiva Normal EN: No EN Drainage Mucous Memb. Dryish, poor dentition Neck: no JVD positive JVP Supple no thyromegaly CVS: S1 S2 no Murmur No Gallop No Rub no Edema Resp: no Rales no Rhonchi no Acc. Muscle use GI: BAS +ve NO Bruit Non Tender Non Distended : no CVA tenderness; no Suprapubic Tenderness SKIN: no Rashes Breast Exam deferred Mu.Sk: Adequate ROM no Muscle Atrophy Heme: Unable to palpate Obvious LAD no Splenomegaly NEURO: Good Strength and Tone Cranial Nerves II - XII grossly intact Psych: ? Depressed versus ill-appearing gentleman, no active hallucinations Vital Signs Vital Signs Date Time Temp Pulse Resp B/P (MAP) Pulse Ox O2 Delivery O2 Flow Rate FiO2 04/06/20 08:00 Room Air 04/06/20 07:00 99.0 90 22 140/58 (85) 98 99.0 Assessment & Plan Acute kidney injury: Suspect intravascular volume depletion associated with nausea vomiting diarrhea no recent past. Continue volume repletion. Urine output appears to be picking up at this time. Pyelonephritis cannot be ruled out based on imaging studies Hyperkalemia: Patient declined dialysis. This has been treated with IV bicarbonate and other temporizing measures. Labs will be rechecked and IV fluids may need to be changed to bicarb containing fluids. May need Kayexalate also Wide anion gap metabolic acidosis: Lactate appears to have corrected. We do not have an ability to check serum ketones here. UA has been ordered and will check for ketones here. He remains on banana bag Hypocalcemia: Check magnesium correct the same. CPK will be checked for completion sake also. Lactic acidemia: Now resolved Anemia: Presumably associated with GI bleed. Hematemesis: May be contributing some to her hyperkalemia also as well as volume depletion. Intravascular volume depletion: Recheck labs and change blood IV fluids as needed. Labs Labs Laboratory Tests Test 04/05/20 19:55 04/05/20 20:00 04/06/20 00:56 04/06/20 07:30 White Blood Count 12.4 x10^3/uL (4.0-11.0) 6.7 x10^3/uL (4.0-11.0) Red Blood Count 4.28 x10^6/uL (4.30-5.70) 3.65 x10^6/uL (4.30-5.70) Hemoglobin 13.8 g/dL (13.0-17.5) 11.7 g/dL (13.0-17.5) Hematocrit 41.5 % (39.0-53.0) 34.7 % (39.0-53.0) Mean Corpuscular Volume 97 fL (79-100) 95 fL (79-100) Mean Corpuscular Hemoglobin 32 pg (25-35) 32 pg (25-35) Mean Corpuscular Hemoglobin Concent 33 g/dL (31-37) 34 g/dL (31-37) Red Cell Distribution Width 14.2 % (11.5-14.5) 13.8 % (11.5-14.5) Platelet Count 165 x10^3/uL (140-400) 93 x10^3/uL (140-400) Neutrophils (%) (Auto) 87 % (31-73) 88 % (31-73) Lymphocytes (%) (Auto) 8 % (24-48) 7 % (24-48) Monocytes (%) (Auto) 4 % (0-9) 6 % (0-9) Eosinophils (%) (Auto) 0 % (0-3) 0 % (0-3) Basophils (%) (Auto) 1 % (0-3) 0 % (0-3) Neutrophils # (Auto) 10.8 x10^3/uL (1.8-7.7) 5.9 x10^3/uL (1.8-7.7) Lymphocytes # (Auto) 1.0 x10^3/uL (1.0-4.8) 0.4 x10^3/uL (1.0-4.8) Monocytes # (Auto) 0.5 x10^3/uL (0.0-1.1) 0.4 x10^3/uL (0.0-1.1) Eosinophils # (Auto) 0.0 x10^3/uL (0.0-0.7) 0.0 x10^3/uL (0.0-0.7) Basophils # (Auto) 0.1 x10^3/uL (0.0-0.2) 0.0 x10^3/uL (0.0-0.2) Segmented Neutrophils % 70 % (35-66) Band Neutrophils % 10 % (0-9) Lymphocytes % 16 % (24-48) Monocytes % 4 % (0-10) Platelet Estimate Adequate (ADEQUATE) Platelet Clumps, EDTA Present Prothrombin Time 16.0 SEC (11.7-14.0) Prothromb Time International Ratio 1.3 (0.8-1.1) Activated Partial Thromboplast Time 25 SEC (24-38) Sodium Level 144 mmol/L (136-145) 142 mmol/L (136-145) Potassium Level 5.3 mmol/L (3.5-5.1) 6.6 mmol/L (3.5-5.1) Chloride Level 96 mmol/L (98-107) 105 mmol/L (98-107) Carbon Dioxide Level 8 mmol/L (21-32) 10 mmol/L (21-32) Anion Gap 40 (6-14) 27 (6-14) Blood Urea Nitrogen 52 mg/dL (8-26) 61 mg/dL (8-26) Creatinine 3.6 mg/dL (0.7-1.3) 4.0 mg/dL (0.7-1.3) Estimated GFR (Cockcroft-Gault) 20.8 18.4 Glucose Level 66 mg/dL (70-99) 110 mg/dL (70-99) Lactic Acid Level 8.0 mmol/L (0.4-2.0) 6.5 mmol/L (0.4-2.0) 2.3 mmol/L (0.4-2.0) Calcium Level 7.8 mg/dL (8.5-10.1) 6.5 mg/dL (8.5-10.1) Magnesium Level 3.1 mg/dL (1.8-2.4) Total Bilirubin 0.7 mg/dL (0.2-1.0) Direct Bilirubin 0.3 mg/dL (0.0-0.2) Aspartate Amino Transf (AST/SGOT) 149 U/L (15-37) Alanine Aminotransferase (ALT/SGPT) 81 U/L (16-63) Alkaline Phosphatase 65 U/L (46-116) Total Protein 6.5 g/dL (6.4-8.2) Albumin 3.6 g/dL (3.4-5.0) Ethyl Alcohol Level 165 mg/dL (0-10) Stool Occult Blood Negative (NEG) Iron Level 141 ug/dL (65-175) Total Iron Binding Capacity 165 ug/dL (250-450) Iron Saturation 85 % (15-34) C-Reactive Protein, Quantitative 17.8 mg/L (0-3.3) Vitamin B12 Level 1676 pg/mL (247-911) Procalcitonin 1.70 ng/mL (0.00-0.10) Test 04/06/20 10:23 04/06/20 11:20 04/06/20 12:07 Glucose (Fingerstick) 216 mg/dL (70-99) 209 mg/dL (70-99) Lactic Acid Level 1.6 mmol/L (0.4-2.0) Laboratory Tests Test 04/05/20 19:55 04/05/20 20:00 04/06/20 00:56 04/06/20 07:30 White Blood Count 12.4 x10^3/uL (4.0-11.0) 6.7 x10^3/uL (4.0-11.0) Red Blood Count 4.28 x10^6/uL (4.30-5.70) 3.65 x10^6/uL (4.30-5.70) Hemoglobin 13.8 g/dL (13.0-17.5) 11.7 g/dL (13.0-17.5) Hematocrit 41.5 % (39.0-53.0) 34.7 % (39.0-53.0) Mean Corpuscular Volume 97 fL (79-100) 95 fL (79-100) Mean Corpuscular Hemoglobin 32 pg (25-35) 32 pg (25-35) Mean Corpuscular Hemoglobin Concent 33 g/dL (31-37) 34 g/dL (31-37) Red Cell Distribution Width 14.2 % (11.5-14.5) 13.8 % (11.5-14.5) Platelet Count 165 x10^3/uL (140-400) 93 x10^3/uL (140-400) Neutrophils (%) (Auto) 87 % (31-73) 88 % (31-73) Lymphocytes (%) (Auto) 8 % (24-48) 7 % (24-48) Monocytes (%) (Auto) 4 % (0-9) 6 % (0-9) Eosinophils (%) (Auto) 0 % (0-3) 0 % (0-3) Basophils (%) (Auto) 1 % (0-3) 0 % (0-3) Neutrophils # (Auto) 10.8 x10^3/uL (1.8-7.7) 5.9 x10^3/uL (1.8-7.7) Lymphocytes # (Auto) 1.0 x10^3/uL (1.0-4.8) 0.4 x10^3/uL (1.0-4.8) Monocytes # (Auto) 0.5 x10^3/uL (0.0-1.1) 0.4 x10^3/uL (0.0-1.1) Eosinophils # (Auto) 0.0 x10^3/uL (0.0-0.7) 0.0 x10^3/uL (0.0-0.7) Basophils # (Auto) 0.1 x10^3/uL (0.0-0.2) 0.0 x10^3/uL (0.0-0.2) Segmented Neutrophils % 70 % (35-66) Band Neutrophils % 10 % (0-9) Lymphocytes % 16 % (24-48) Monocytes % 4 % (0-10) Platelet Estimate Adequate (ADEQUATE) Platelet Clumps, EDTA Present Prothrombin Time 16.0 SEC (11.7-14.0) Prothromb Time International Ratio 1.3 (0.8-1.1) Activated Partial Thromboplast Time 25 SEC (24-38) Sodium Level 144 mmol/L (136-145) 142 mmol/L (136-145) Potassium Level 5.3 mmol/L (3.5-5.1) 6.6 mmol/L (3.5-5.1) Chloride Level 96 mmol/L (98-107) 105 mmol/L (98-107) Carbon Dioxide Level 8 mmol/L (21-32) 10 mmol/L (21-32) Anion Gap 40 (6-14) 27 (6-14) Blood Urea Nitrogen 52 mg/dL (8-26) 61 mg/dL (8-26) Creatinine 3.6 mg/dL (0.7-1.3) 4.0 mg/dL (0.7-1.3) Estimated GFR (Cockcroft-Gault) 20.8 18.4 Glucose Level 66 mg/dL (70-99) 110 mg/dL (70-99) Lactic Acid Level 8.0 mmol/L (0.4-2.0) 6.5 mmol/L (0.4-2.0) 2.3 mmol/L (0.4-2.0) Calcium Level 7.8 mg/dL (8.5-10.1) 6.5 mg/dL (8.5-10.1) Magnesium Level 3.1 mg/dL (1.8-2.4) Total Bilirubin 0.7 mg/dL (0.2-1.0) Direct Bilirubin 0.3 mg/dL (0.0-0.2) Aspartate Amino Transf (AST/SGOT) 149 U/L (15-37) Alanine Aminotransferase (ALT/SGPT) 81 U/L (16-63) Alkaline Phosphatase 65 U/L (46-116) Total Protein 6.5 g/dL (6.4-8.2) Albumin 3.6 g/dL (3.4-5.0) Ethyl Alcohol Level 165 mg/dL (0-10) Stool Occult Blood Negative (NEG) Iron Level 141 ug/dL (65-175) Total Iron Binding Capacity 165 ug/dL (250-450) Iron Saturation 85 % (15-34) C-Reactive Protein, Quantitative 17.8 mg/L (0-3.3) Vitamin B12 Level 1676 pg/mL (247-911) Procalcitonin 1.70 ng/mL (0.00-0.10) Test 04/06/20 10:23 04/06/20 11:20 04/06/20 12:07 Glucose (Fingerstick) 216 mg/dL (70-99) 209 mg/dL (70-99) Lactic Acid Level 1.6 mmol/L (0.4-2.0) Review All relevant outside records, renal labs, imaging studies, telemetry/EKG's were reviewed. Images Images CT scan of abdomen and pelvis done earlier today: IMPRESSION: 1. Mild diffuse colitis, with equivocal involvement of the terminal ileum. No bowel obstruction or perforation. 2. Severe hepatic steatosis. 3. Right greater than left bilateral perirenal soft tissue stranding. This is nonspecific but chronic kidney disease can appear similar. Acute renal inflammation, infection or hemorrhage are differential considerations. ODILIA WEAVER MD Apr 06, 2020 12:44
[2020-04-06] MEDS ORDERED: MAGNESIUM SULFATE 2GM 50 ML IV PRN (12:45)
[2020-04-06 13:54] LABS: PHOSPHORUS 2.9 mg/dL (2.6-4.7); POTASSIUM 4.8 mmol/L (3.5-5.1)
[2020-04-06 15:00] VITALS: BP 146/80
[2020-04-06 15:26] LABS: BILIRUBIN,URINE NEGATIVE (NEG); CLARITY,URINE CLEAR; COLOR,URINE YELLOW; NITRITE,URINE NEGATIVE (NEG); PROTEIN,URINE 30 mg/dL (NEG-TRACE); UROBILINOGEN,URINE 0.2 mg/dL (0.2 mg/dL)
[2020-04-06 15:38] LABS: BACTERIA,URINE MODERATE /HPF (0-FEW)
[2020-04-06 19:45] VITALS: BP 147/72
[2020-04-06 23:05] VITALS: BP 144/78
[2020-04-07] MEDS: PANTOPRAZOLE SODIUM IV DRIP 80 MG in IV NORMAL SALINE 100ML 100 ML IV SCH ×2 (00:04→00:07)
[2020-04-07 03:47] VITALS: BP 169/74
[2020-04-07] MEDS ORDERED: cefTRIAXone IV Push 2 GM VIAL. IVP SCH ×2 (05:30→12:00)
[2020-04-07 07:00] VITALS: BP 150/89
[2020-04-07] MEDS ORDERED: IV RINGERS,LACTATED 1000ML 1,000 ML IV SCH (07:00)
--- NOTE | 2020-04-07 07:23 | PDOC ---
[employer] PROGRESS NOTE Date of Service DOS: DATE: 04/07/20 TIME: 07:17 Chief Complaint Chief Complaint Upper GI bleed Leukocytosis Bandemia NICKI Lactic acidosis Alcohol intoxication History of alcohol abuse Transaminitis Plan: Consult GI PPI drip Patient received Zosyn and vancomycin in the ER Continue broad-spectrum antibiotics with Rocephin due to GI bleeding concern for SBP Will obtain noncontrast CT abdomen Blood cultures pending Stool occult blood negative Alcohol withdrawal treatment with daily banana bag, thiamine, folic acid, Ativan as needed Consult nephrology. Creatinine 3.6 with unknow baseline History of Present Illness History of Present Illness Patient is 64 male with past medical history of alcoholism, who presents to the ER with complaint of vomiting dark coffee-ground emesis yesterday. Patient reports associated right lower quadrant abdominal pain, diarrhea, and a syncopal episode yesterday at home. He denies head injury or loss of consciousness. Patient reportedly has increased his alcohol intake over the past 2 weeks, drinking 1-2 pints of vodka daily. He denies history of liver cirrhosis, or history of kidney disease. He denies any abdominal distention, dark stools, or fever. 04/07/2020 Patient afebrile overnight. Potassium improved with Lasix. CT abdomen pelvis showing mild diffuse colitis, still with some right lower quadrant abdominal pain. Continue with empiric antibiotics. We will keep n.p.o. for anticipated EGD today. Vitals/I&O Vitals/I&O: Vital Signs Date Time Temp Pulse Resp B/P (MAP) Pulse Ox O2 Delivery O2 Flow Rate FiO2 04/07/20 03:47 98.1 99 16 169/74 (105) 95 Room Air 98.1 I & O 04/06/20 04/06/20 04/07/20 15:00 23:00 07:00 Intake Total 0 ml 2075 ml 0 ml Output Total 300 ml 475 ml 475 ml Balance -300 ml 1600 ml -475 ml Physical Exam General: Alert Heart: Regular rate Lungs: Clear Abdomen: Other (Right lower quadrant tenderness) Extremities: No cyanosis, No edema Skin: No rashes, No breakdown Labs Labs: Laboratory Tests Test 04/06/20 07:30 04/06/20 10:23 04/06/20 11:20 04/06/20 12:07 White Blood Count 6.7 x10^3/uL (4.0-11.0) Red Blood Count 3.65 x10^6/uL (4.30-5.70) Hemoglobin 11.7 g/dL (13.0-17.5) Hematocrit 34.7 % (39.0-53.0) Mean Corpuscular Volume 95 fL (79-100) Mean Corpuscular Hemoglobin 32 pg (25-35) Mean Corpuscular Hemoglobin Concent 34 g/dL (31-37) Red Cell Distribution Width 13.8 % (11.5-14.5) Platelet Count 93 x10^3/uL (140-400) Neutrophils (%) (Auto) 88 % (31-73) Lymphocytes (%) (Auto) 7 % (24-48) Monocytes (%) (Auto) 6 % (0-9) Eosinophils (%) (Auto) 0 % (0-3) Basophils (%) (Auto) 0 % (0-3) Neutrophils # (Auto) 5.9 x10^3/uL (1.8-7.7) Lymphocytes # (Auto) 0.4 x10^3/uL (1.0-4.8) Monocytes # (Auto) 0.4 x10^3/uL (0.0-1.1) Eosinophils # (Auto) 0.0 x10^3/uL (0.0-0.7) Basophils # (Auto) 0.0 x10^3/uL (0.0-0.2) Sodium Level 142 mmol/L (136-145) Potassium Level 6.6 mmol/L (3.5-5.1) Chloride Level 105 mmol/L (98-107) Carbon Dioxide Level 10 mmol/L (21-32) Anion Gap 27 (6-14) Blood Urea Nitrogen 61 mg/dL (8-26) Creatinine 4.0 mg/dL (0.7-1.3) Estimated GFR (Cockcroft-Gault) 18.4 Glucose Level 110 mg/dL (70-99) Lactic Acid Level 2.3 mmol/L (0.4-2.0) 1.6 mmol/L (0.4-2.0) Calcium Level 6.5 mg/dL (8.5-10.1) Iron Level 141 ug/dL (65-175) Total Iron Binding Capacity 165 ug/dL (250-450) Iron Saturation 85 % (15-34) C-Reactive Protein, Quantitative 17.8 mg/L (0-3.3) Vitamin B12 Level 1676 pg/mL (247-911) Procalcitonin 1.70 ng/mL (0.00-0.10) Glucose (Fingerstick) 216 mg/dL (70-99) 209 mg/dL (70-99) Test 04/06/20 12:10 04/06/20 13:28 04/06/20 15:15 04/06/20 16:53 SARS-CoV-2 Antigen (Rapid) Negative (NEGATIVE) Potassium Level 4.8 mmol/L (3.5-5.1) Lactic Acid Level 1.3 mmol/L (0.4-2.0) Phosphorus Level 2.9 mg/dL (2.6-4.7) Creatine Kinase 771 U/L (39-308) Urine Collection Type Unknown Urine Color Yellow Urine Clarity Clear Urine pH 5.0 (<5.0-8.0) Urine Specific [place] 1.010 (1.000-1.030) Urine Protein 30 mg/dL (NEG-TRACE) Urine Glucose (UA) Negative mg/dL (NEG) Urine Ketones (Stick) 15 mg/dL (NEG) Urine Blood Moderate (NEG) Urine Nitrite Negative (NEG) Urine Bilirubin Negative (NEG) Urine Urobilinogen Dipstick 0.2 mg/dL (0.2 mg/dL) Urine Leukocyte Esterase Negative (NEG) Urine RBC 1-2 /HPF (0-2) Urine WBC 5-10 /HPF (0-4) Urine Squamous Epithelial Cells Few /LPF Urine Bacteria Moderate /HPF (0-FEW) Urine Random Sodium 80 mmol/L (Not Estab.) Glucose (Fingerstick) 183 mg/dL (70-99) Review of Systems Review of Systems: Abdominal pain. Denies fever, denies chest pain, denies shortness of breath. Assessment and Plan Assessmemt and Plan Problems Medical Problems: (1) Alcohol intoxication Status: Acute (2) Bandemia without diagnosis of specific infection Status: Acute (3) Hyperkalemia Status: Acute (4) Renal insufficiency Status: Acute (5) Upper GI bleed Status: Acute Comment Review of Relevant I have reviewed the following items hernandez (where applicable) has been applied. Medications: Current Medications Medications (Trade) Dose Ordered Sig/Camille Route PRN Reason Start Time Stop Time Status Last Admin Dose Admin Multivitamins 10 ml/Thiamine HCl 100 mg/Folic Acid 1 mg/Sodium Chloride 1,011.2 ml @ 100 mls/ hr DAILY IV 04/06/20 10:00 04/10/20 19:07 04/06/20 10:17 Lorazepam (Ativan) 4 mg PRN Q1HR PRN PO For CIWA 8-14 04/06/20 07:30 04/07/20 00:07 Dextrose (Dextrose 50%-Water Syringe) 25 gm 1X ONCE IV 04/06/20 08:30 04/06/20 08:32 DC 04/06/20 08:56 Insulin Human Regular (HumuLIN R VIAL) 5 unit 1X ONCE IV 04/06/20 09:00 04/06/20 09:01 DC 04/06/20 09:00 Sodium Bicarbonate (Sodium Bicarb Adult 8.4% Syr) 50 meq 1X ONCE IV 04/06/20 09:00 04/06/20 09:01 DC 04/06/20 08:56 Calcium Gluconate (Calcium Gluconate) 1,000 mg 1X ONCE IVP 04/06/20 09:00 04/06/20 09:01 DC 04/06/20 08:56 Furosemide (Lasix) 40 mg 1X ONCE IVP 04/06/20 10:30 04/06/20 10:31 DC 04/06/20 10:17 Ceftriaxone Sodium (Rocephin) 2 gm Q24H IVP 04/06/20 12:00 04/07/20 05:26 DC 04/06/20 12:00 Justifications for Admission Other Justification NAS GREGORY MD Apr 07, 2020 07:23
[2020-04-07 07:34] LABS: HEMATOCRIT 36.1 % (39.0-53.0); HEMOGLOBIN 12.5 g/dL (13.0-17.5); RED BLOOD COUNT 3.86 x10^6/uL (4.30-5.70); RED CELL DISTRIBUTION WIDTH 14.4 % (11.5-14.5); WHITE BLOOD COUNT 3.6 x10^3/uL (4.0-11.0)
[2020-04-07] MEDS: INSULIN LISPRO 300 UNITS/3 ML VIAL. SQ SCH ×3 (08:00→16:54)
[2020-04-07 08:08] LABS: ALBUMIN 2.9 g/dL (3.4-5.0); ALBUMIN/GLOBULIN RATIO 0.9 (1.0-1.7); CALCIUM 7.4 mg/dL (8.5-10.1); CREATININE 3.9 mg/dL (0.7-1.3); GFR 18.9; POTASSIUM 3.9 mmol/L (3.5-5.1); TOTAL BILIRUBIN 0.5 mg/dL (0.2-1.0); TOTAL PROTEIN 6.1 g/dL (6.4-8.2)
[2020-04-07 08:26] LABS: PHOSPHORUS 1.4 mg/dL (2.6-4.7)
[2020-04-07] MEDS ORDERED: PROPOFOL 10 MG/ML (20ML) VIAL. IV ONE (11:20)
[2020-04-07] MEDS ORDERED: LIDOCAINE 2% PF 5 ML VIAL. ONE (11:20)
--- NOTE | 2020-04-07 11:46 | PDOC4 ---
PROCEDURE Procedure EGD/biopsies Indication: hematemesis Meds: per anesthesia Findings: E--Severe esophagitis with hematin-staining entire esophagus (likely from repeated emesis of gastric contents). No varices. G--Patchy erythema, antrum, biopsied. D--Normal to second portion. Taiwo. well. IMP: Severe esophagitis, hematin-stained, c/w some bleeding from this. Baseline not clear. Gastric erythema, biopsied. REC: Continue PPI IV until eating; probably could go to BID and stop drip. PO when eating. Stay sober. F/u biopsies. 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 OK to try clears. TRAMAINE LEE MD Apr 07, 2020 11:46
[2020-04-07] MEDS: MULTIVIT INFUSN,ADULT 4,VIT K 10 ML, THIAMINE INJ 100 MG, FOLIC ACID INJ 1 MG in IV NOR... IV SCH (12:16)
[2020-04-07 12:25] VITALS: BP 178/102
--- NOTE | 2020-04-07 12:52 | PDOC ---
DATE OF SERVICE: DOS: DATE: 04/07/20 TIME: 12:50 SUBJECTIVE ROS Follow-up for acute kidney injury Patient just back from EGD. Remains somewhat drowsy. Found to have significant esophagitis per verbal report OBJECTIVE Vital Signs Vital Signs Date Time Temp Pulse Resp B/P (MAP) Pulse Ox O2 Delivery O2 Flow Rate FiO2 04/07/20 12:25 98.7 107 16 178/102 (127) 98 Room Air 98.7 04/07/20 11:44 4 I & 0 Intake and Output 04/07/20 07:00 Intake Total 2075 ml Output Total 1250 ml Balance 825 ml Intake Oral 0 ml IV Total 2075 ml Output Urine Total 1250 ml PHYSICAL EXAM Physical Exam GEN: barely Awake, Oriented x 0, In no distress, drowsy EYES: Sclera Anicteric Conjunctiva Normal EN: No EN Drainage, Mucous Membranes moist NECK: no JVD, min JVP, Supple, no Thyromegaly CVS: S1S2, ? Murmur, No Gallop, No Rub,no Edema RESP: no Rales, no Rhonchi,no Acc. Muscle Use GI: BS + ve, NO Bruit, Non Tender, Non Distended : no CVA tenderness, no Suprapubic Tenderness DIAGNOSIS/ASSESSMENT Assessment & Plan Acute kidney injury: Suspect intravascular volume depletion associated with nausea vomiting diarrhea from recent past. Continue volume repletion. Urine output appears to be picking up at this time. Pyelonephritis cannot be ruled out based on imaging studies. Patient has declined initiation of dialysis in the past Hyperkalemia: Now resolved Wide anion gap metabolic acidosis: Lactate appears to have corrected. We do not have an ability to check serum ketones here. UA positive for ketones here. Reevaluate after patient starts to eat better. IV fluids with bicarb Abnormal UA: Await urine culture. No growth so far despite bacteriuria Hypocalcemia: . CPK is mildly elevated. Mostly corrects for low albumin Hypophosphatemia: Add phosphorus to IV fluids Hypernatremia: Change to hypotonic IV fluids Possible cirrhosis of the liver: Defer to GI Anemia: Presumably associated with GI bleed. Hematemesis: May be contributing some to her hyperkalemia also as well as volume depletion. Intravascular volume depletion: Recheck labs and change blood IV fluids as needed. COMMENT/RELEVANT DATA Meds Current Medications Medications (Trade) Dose Ordered Sig/Camille Start Time Stop Time Status Last Admin Dose Admin Acetaminophen/ Hydrocodone Bitart (Lortab 5/325) 1 tab PRN Q4HRS PRN 04/06/20 02:15 04/06/20 12:05 1 TAB Calcium Gluconate (Calcium Gluconate) 1,000 mg 1X ONCE 04/06/20 09:00 04/06/20 09:01 DC 04/06/20 08:56 1,000 MG Ceftriaxone Sodium (Rocephin) 2 gm Q24H 04/07/20 12:00 04/07/20 12:16 2 GM Chlordiazepoxide (Librium) 100 mg PRN Q1HR PRN 04/06/20 07:30 04/06/20 07:35 DC Clonidine HCl (Catapres) 0.1 mg PRN Q1HR PRN 04/06/20 07:30 Dextrose (Dextrose 50%-Water Syringe) 12.5 gm PRN Q15MIN PRN 04/06/20 08:45 Diphenhydramine HCl (Benadryl) 25 mg PRN Q15MIN PRN 04/06/20 07:30 Famotidine (Pepcid Vial) 20 mg 1X ONCE 04/05/20 19:00 04/05/20 19:01 DC 04/05/20 19:26 20 MG Folic Acid (Folic Acid) 1 mg DAILY 04/11/20 09:00 Furosemide (Lasix) 40 mg 1X ONCE 04/06/20 10:30 04/06/20 10:31 DC 04/06/20 10:17 40 MG Haloperidol Lactate (Haldol Inj) 5 mg PRN Q4HRS PRN 04/06/20 07:30 Insulin Human Lispro (HumaLOG) 0-5 UNITS TIDWMEALS 04/06/20 12:00 Insulin Human Regular (HumuLIN R VIAL) 5 unit 1X ONCE 04/06/20 09:00 04/06/20 09:01 DC 04/06/20 09:00 5 UNIT Lidocaine HCl (Lidocaine Pf 2% Vial) 5 ml STK-MED ONCE 04/07/20 11:20 04/07/20 11:20 DC Lorazepam (Ativan Inj) 4 mg PRN Q15MIN PRN 04/06/20 07:30 UNV Lorazepam (Ativan) 8 mg PRN Q1HR PRN 04/06/20 07:30 Magnesium Sulfate 50 ml @ 25 mls/hr PRN DAILY PRN 04/06/20 12:45 Metoclopramide HCl (Reglan Vial) 10 mg 1X ONCE 04/05/20 19:00 04/05/20 19:01 DC 04/05/20 19:29 10 MG Multivitamins (Thera M Plus) 1 tab DAILY 04/11/20 09:00 Multivitamins 10 ml/Thiamine HCl 100 mg/Folic Acid 1 mg/Sodium Chloride 1,011.2 ml @ 100 mls/ hr DAILY 04/06/20 10:00 04/10/20 19:07 04/07/20 12:16 100 MLS/HR Ondansetron HCl (Zofran) 4 mg PRN Q8HRS PRN 04/05/20 22:00 04/06/20 08:21 DC 04/05/20 23:42 4 MG Pantoprazole Sodium (PROTONIX VIAL for IV PUSH) 40 mg BIDWMEALS 04/07/20 17:00 Pantoprazole Sodium 80 mg/ Sodium Chloride 100 ml @ 10 mls/hr Q10H 04/05/20 18:45 04/07/20 11:49 DC 04/07/20 00:07 10 MLS/HR Piperacillin Sod/ Tazobactam Sod (Zosyn Per Pharmacy) 1 each PRN DAILY PRN 04/05/20 22:00 04/06/20 08:21 DC Piperacillin Sod/ Tazobactam Sod 2.25 gm/Sodium Chloride 50 ml @ 100 mls/hr Q6HRS 04/05/20 23:00 04/06/20 08:16 DC 04/06/20 05:10 100 MLS/HR Propofol (Diprivan) 200 mg STK-MED ONCE 04/07/20 11:20 04/07/20 11:20 DC Ringer's Solution 1,000 ml @ 50 mls/hr Q20H 04/07/20 07:00 04/07/20 18:59 04/07/20 10:01 50 MLS/HR Sodium Bicarbonate (Sodium Bicarb Adult 8.4% Syr) 50 meq 1X ONCE 04/06/20 09:00 04/06/20 09:01 DC 04/06/20 08:56 50 MEQ Sodium Chloride 1,000 ml @ 1,000 mls/hr 1X ONCE 04/05/20 23:30 04/06/20 00:29 DC 04/06/20 00:49 1,000 MLS/HR Vancomycin HCl (Vanco Per Pharmacy) 1 each PRN DAILY PRN 04/05/20 22:00 04/06/20 08:21 DC 04/06/20 02:45 1 EACH Vancomycin HCl (Vancomycin Trough Level) 1 each 1X ONCE 04/09/20 22:30 04/06/20 08:21 DC Vancomycin HCl 1.75 gm/Sodium Chloride 500 ml @ 250 mls/hr 1X ONCE 04/05/20 23:00 04/06/20 00:59 DC 04/05/20 23:27 250 MLS/HR Vancomycin HCl 1 gm/Sodium Chloride 250 ml @ 250 mls/hr Q48H 04/07/20 23:00 04/06/20 08:21 DC Lab Laboratory Tests Test 04/06/20 13:28 04/06/20 15:15 04/06/20 16:53 04/07/20 06:05 Potassium Level 4.8 mmol/L (3.5-5.1) 3.9 mmol/L (3.5-5.1) Lactic Acid Level 1.3 mmol/L (0.4-2.0) Phosphorus Level 2.9 mg/dL (2.6-4.7) 1.4 mg/dL (2.6-4.7) Creatine Kinase 771 U/L (39-308) Urine Collection Type Unknown Urine Color Yellow Urine Clarity Clear Urine pH 5.0 (<5.0-8.0) Urine Specific Bedias 1.010 (1.000-1.030) Urine Protein 30 mg/dL (NEG-TRACE) Urine Glucose (UA) Negative mg/dL (NEG) Urine Ketones (Stick) 15 mg/dL (NEG) Urine Blood Moderate (NEG) Urine Nitrite Negative (NEG) Urine Bilirubin Negative (NEG) Urine Urobilinogen Dipstick 0.2 mg/dL (0.2 mg/dL) Urine Leukocyte Esterase Negative (NEG) Urine RBC 1-2 /HPF (0-2) Urine WBC 5-10 /HPF (0-4) Urine Squamous Epithelial Cells Few /LPF Urine Bacteria Moderate /HPF (0-FEW) Urine Random Sodium 80 mmol/L (Not Estab.) Glucose (Fingerstick) 183 mg/dL (70-99) White Blood Count 3.6 x10^3/uL (4.0-11.0) Red Blood Count 3.86 x10^6/uL (4.30-5.70) Hemoglobin 12.5 g/dL (13.0-17.5) Hematocrit 36.1 % (39.0-53.0) Mean Corpuscular Volume 93 fL (79-100) Mean Corpuscular Hemoglobin 32 pg (25-35) Mean Corpuscular Hemoglobin Concent 35 g/dL (31-37) Red Cell Distribution Width 14.4 % (11.5-14.5) Platelet Count 66 x10^3/uL (140-400) Sodium Level 150 mmol/L (136-145) Chloride Level 110 mmol/L (98-107) Carbon Dioxide Level 18 mmol/L (21-32) Anion Gap 22 (6-14) Blood Urea Nitrogen 64 mg/dL (8-26) Creatinine 3.9 mg/dL (0.7-1.3) Estimated GFR (Cockcroft-Gault) 18.9 BUN/Creatinine Ratio 16 (6-20) Glucose Level 127 mg/dL (70-99) Calcium Level 7.4 mg/dL (8.5-10.1) Magnesium Level 2.4 mg/dL (1.8-2.4) Total Bilirubin 0.5 mg/dL (0.2-1.0) Aspartate Amino Transf (AST/SGOT) 77 U/L (15-37) Alanine Aminotransferase (ALT/SGPT) 63 U/L (16-63) Alkaline Phosphatase 57 U/L (46-116) Total Protein 6.1 g/dL (6.4-8.2) Albumin 2.9 g/dL (3.4-5.0) Albumin/Globulin Ratio 0.9 (1.0-1.7) Test 04/07/20 07:24 04/07/20 12:16 Glucose (Fingerstick) 128 mg/dL (70-99) 135 mg/dL (70-99) Results All relevant outside records, renal labs, imaging studies, telemetry/EKG's were reviewed. Justicifation of Admission Dx: Justifications for Admission: Justification of Admission Dx: N/A ODILIA WEAVER MD Apr 07, 2020 12:52
[2020-04-07] MEDS: SODIUM BICARBONATE IV SCH (14:12)
[2020-04-07] MEDS: DEXTROSE 5% IV SCH (14:12)
[2020-04-07] MEDS: SODIUM PHOSPHATE IV SCH (14:12)
[2020-04-07 14:48] VITALS: BP 169/97
--- NOTE | 2020-04-07 15:12 | NUR ---
SS following up with discharge planning. SS reviewed pt chart and discussed with pt RN. Pt is currently on room air. Pt had EGD today. Pt on IV Rocephin. PT/OT recommended acute rehabilitation. Pt only has [facility] insurance. SS contacted case management to see if pt has benefits for acute rehabilitation. Pt requesting to go to acute rehab if [facility] will approve. SS will continue to follow for discharge planning.
[2020-04-07] MEDS: PANTOPRAZOLE IV PUSH 40 MG VIAL. IVP SCH (16:12)
[2020-04-07 19:24] VITALS: BP 168/89
[2020-04-07 22:51] VITALS: BP 161/85
[2020-04-07] MEDS ORDERED: VANCOMYCIN 1 GM in IV NORMAL SALINE 250ML 250 ML IV SCH (23:00)
[2020-04-08] VITALS (7 sets, daily range): BP systolic 150–163; BP diastolic 83–96
[2020-04-08] MEDS: DEXTROSE 5% IV SCH (00:38)
[2020-04-08] MEDS: SODIUM PHOSPHATE IV SCH (00:38)
[2020-04-08] MEDS: SODIUM BICARBONATE IV SCH (00:38)
[2020-04-08 04:52] LABS: BASO % 0 % (0-3); EOS # 0.1 x10^3/uL (0.0-0.7); EOS % 2 % (0-3); HEMATOCRIT 30.8 % (39.0-53.0); HEMOGLOBIN 10.6 g/dL (13.0-17.5); LYMPH # 0.7 x10^3/uL (1.0-4.8); LYMPH % 18 % (24-48); MEAN CORPUSCULAR HEMOGLOBIN 32 pg (25-35); MEAN CORPUSCULAR HGB CONC 34 g/dL (31-37); MEAN CORPUSCULAR VOLUME 92 fL (79-100); MONO # 0.2 x10^3/uL (0.0-1.1); MONO % 6 % (0-9); NEUT # 2.8 x10^3/uL (1.8-7.7); NEUT % 73 % (31-73); PLATELET COUNT 49 x10^3/uL (140-400); RED BLOOD COUNT 3.35 x10^6/uL (4.30-5.70); WHITE BLOOD COUNT 3.8 x10^3/uL (4.0-11.0)
[2020-04-08 05:00] LABS: ALBUMIN 2.5 g/dL (3.4-5.0); CALCIUM 7.6 mg/dL (8.5-10.1); CREATININE 2.6 mg/dL (0.7-1.3); GFR 30.2
[2020-04-08 05:06] LABS: POTASSIUM 2.7 mmol/L (3.5-5.1)
[2020-04-08] MEDS ORDERED: POTASSIUM CHLORIDE 20 MEQ TABLET.ER. PO ONE (05:45)
[2020-04-08] MEDS: ALBUTEROL SULFATE 2.5 MG/3 ML NEBU. NEB PRN ×2 (05:54→19:34)
[2020-04-08] MEDS: INSULIN LISPRO 300 UNITS/3 ML VIAL. SQ SCH ×3 (08:00→17:19)
[2020-04-08] MEDS: PANTOPRAZOLE IV PUSH 40 MG VIAL. IVP SCH ×2 (08:03→17:13)
--- NOTE | 2020-04-08 09:53 | PDOC ---
Date of Service: DATE: 04/08/20 TIME: 09:47 Subjective: Subjective: Throat is sore. Trying to drink some. No bleeding. Objective: Objective: D/w nurse - drinks Sprite and that's about it. Tmax 99.9. Vital Signs: Vital Signs Date Time Temp Pulse Resp B/P (MAP) Pulse Ox O2 Delivery O2 Flow Rate FiO2 04/08/20 07:00 99.9 66 18 162/83 (109) 98 Room Air 99.9 04/07/20 11:44 4 Labs: Laboratory Tests Test 04/07/20 12:16 04/07/20 16:33 04/08/20 04:00 04/08/20 08:01 Glucose (Fingerstick) 135 mg/dL 191 mg/dL 144 mg/dL White Blood Count 3.8 x10^3/uL Red Blood Count 3.35 x10^6/uL Hemoglobin 10.6 g/dL Hematocrit 30.8 % Mean Corpuscular Volume 92 fL Mean Corpuscular Hemoglobin 32 pg Mean Corpuscular Hemoglobin Concent 34 g/dL Red Cell Distribution Width 14.0 % Platelet Count 49 x10^3/uL Neutrophils (%) (Auto) 73 % Lymphocytes (%) (Auto) 18 % Monocytes (%) (Auto) 6 % Eosinophils (%) (Auto) 2 % Basophils (%) (Auto) 0 % Neutrophils # (Auto) 2.8 x10^3/uL Lymphocytes # (Auto) 0.7 x10^3/uL Monocytes # (Auto) 0.2 x10^3/uL Eosinophils # (Auto) 0.1 x10^3/uL Basophils # (Auto) 0.0 x10^3/uL Sodium Level 144 mmol/L Potassium Level 2.7 mmol/L Chloride Level 107 mmol/L Carbon Dioxide Level 27 mmol/L Anion Gap 10 Blood Urea Nitrogen 42 mg/dL Creatinine 2.6 mg/dL Estimated GFR (Cockcroft-Gault) 30.2 Glucose Level 143 mg/dL Calcium Level 7.6 mg/dL Phosphorus Level 3.0 mg/dL Magnesium Level 1.9 mg/dL Albumin 2.5 g/dL BLOOD CULTURE Preliminary NO GROWTH AFTER 2 DAYS Imaging: EGD 04/07 E--Severe esophagitis with hematin-staining entire esophagus (likely from repeated emesis of gastric contents). No varices. G--Patchy erythema, antrum, biopsied. D--Normal to second portion. IMP: Severe esophagitis, hematin-stained, c/w some bleeding from this. Baseline not clear. Gastric erythema, biopsied. REC: Continue PPI IV until eating; probably could go to BID and stop drip. PO when eating. Stay sober. F/u biopsies. 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 OK to try clears. PE: GEN: NAD LUNGS: CTAB HEART: RRR ABD: NABS, S/ND/NT NEURO/PSYCH: A & O 3 A/P: Vomiting - resolved Severe esophagitis, gastric erythema (biopsy pending) - no varices Pancytopenia, elevated AST and ALT (better) NICKI, hypokalemia Alcohol abuse -- Not taking much PO. Continue IV PPI for now. ?try advancing diet Justicifation of Admission Dx: Justifications for Admission: Justification of Admission Dx: N/A TIMA MATTHEWS Apr 08, 2020 09:53
[2020-04-08] MEDS: HYDROcodone/APAP 5/325MG 1 TAB TABLET PO PRN (10:22)
--- NOTE | 2020-04-08 10:58 | PDOC ---
DATE OF SERVICE: DOS: DATE: 04/08/20 TIME: 10:52 SUBJECTIVE ROS Follow-up for acute kidney injury Patient claims he is doing much better currently. Denies nausea vomiting CVS: no Orthopnea, no CP RESP: no SOB, no PRESTON GI: no Nausea, no Vomiting : no Dysuria, no Urgency OBJECTIVE Vital Signs Vital Signs Date Time Temp Pulse Resp B/P (MAP) Pulse Ox O2 Delivery O2 Flow Rate FiO2 04/08/20 10:23 98.3 85 16 156/95 (115) 99 Room Air 98.3 04/07/20 11:44 4 I & 0 Intake and Output 04/08/20 07:00 Intake Total 4805 ml Output Total 1400 ml Balance 3405 ml Intake Oral 3060 ml IV Total 1745 ml Output Urine Total 1400 ml PHYSICAL EXAM Physical Exam GEN: Much more alert and awake, Oriented x 3, In no distress, EYES: Sclera Anicteric Conjunctiva Normal EN: No EN Drainage, Mucous Membranes moist NECK: no JVD, min JVP, Supple, no Thyromegaly CVS: S1S2, ? Murmur, No Gallop, No Rub,no Edema RESP: no Rales, no Rhonchi,no Acc. Muscle Use GI: BS + ve, NO Bruit, Non Tender, Non Distended : no CVA tenderness, no Suprapubic Tenderness DIAGNOSIS/ASSESSMENT Assessment & Plan Acute kidney injury: Suspect intravascular volume depletion associated with nausea vomiting diarrhea from recent past. Continue volume repletion. Urine output appears to be picking up at this time. Pyelonephritis cannot be ruled out based on imaging studies. Hyperkalemia: Now resolved and patient is hypokalemic, Hypokalemia resume replacement Wide anion gap metabolic acidosis: Now resolved Abnormal UA: A no growth on final culture Hypocalcemia: . Corrects for hypoalbuminemia. Recheck CPK Hypophosphatemia: Better after adding phosphorus to IV fluids Hypernatremia: Better after change to hypotonic IV fluids Possible cirrhosis of the liver: Defer to GI Anemia: Presumably associated with GI bleed. Hematemesis: May be contributing some to her hyperkalemia also as well as volume depletion. Intravascular volume depletion: Recheck labs and change blood IV fluids as needed. Urine output is good COMMENT/RELEVANT DATA Meds Current Medications Medications (Trade) Dose Ordered Sig/Camille Start Time Stop Time Status Last Admin Dose Admin Acetaminophen/ Hydrocodone Bitart (Lortab 5/325) 1 tab PRN Q4HRS PRN 04/06/20 02:15 04/08/20 10:22 1 TAB Albuterol Sulfate (Ventolin Neb Soln) 2.5 mg PRN Q4HRS PRN 04/08/20 05:45 04/08/20 05:54 2.5 MG Calcium Gluconate (Calcium Gluconate) 1,000 mg 1X ONCE 04/06/20 09:00 04/06/20 09:01 DC 04/06/20 08:56 1,000 MG Ceftriaxone Sodium (Rocephin) 2 gm Q24H 04/07/20 12:00 04/08/20 10:48 DC 04/07/20 12:16 2 GM Chlordiazepoxide (Librium) 100 mg PRN Q1HR PRN 04/06/20 07:30 04/06/20 07:35 DC Clonidine HCl (Catapres) 0.1 mg PRN Q1HR PRN 04/06/20 07:30 Dextrose (Dextrose 50%-Water Syringe) 12.5 gm PRN Q15MIN PRN 04/06/20 08:45 Diphenhydramine HCl (Benadryl) 25 mg PRN Q15MIN PRN 04/06/20 07:30 Famotidine (Pepcid Vial) 20 mg 1X ONCE 04/05/20 19:00 04/05/20 19:01 DC 04/05/20 19:26 20 MG Folic Acid (Folic Acid) 1 mg DAILY 04/11/20 09:00 Furosemide (Lasix) 40 mg 1X ONCE 04/06/20 10:30 04/06/20 10:31 DC 04/06/20 10:17 40 MG Haloperidol Lactate (Haldol Inj) 5 mg PRN Q4HRS PRN 04/06/20 07:30 Insulin Human Lispro (HumaLOG) 0-5 UNITS TIDWMEALS 04/06/20 12:00 Insulin Human Regular (HumuLIN R VIAL) 5 unit 1X ONCE 04/06/20 09:00 04/06/20 09:01 DC 04/06/20 09:00 5 UNIT Lidocaine HCl (Lidocaine Pf 2% Vial) 5 ml STK-MED ONCE 04/07/20 11:20 04/07/20 11:20 DC Lorazepam (Ativan Inj) 4 mg PRN Q15MIN PRN 04/06/20 07:30 UNV Lorazepam (Ativan) 8 mg PRN Q1HR PRN 04/06/20 07:30 Magnesium Sulfate 50 ml @ 25 mls/hr PRN DAILY PRN 04/06/20 12:45 Metoclopramide HCl (Reglan Vial) 10 mg 1X ONCE 04/05/20 19:00 04/05/20 19:01 DC 04/05/20 19:29 10 MG Multivitamins (Thera M Plus) 1 tab DAILY 04/11/20 09:00 Multivitamins 10 ml/Thiamine HCl 100 mg/Folic Acid 1 mg/Sodium Chloride 1,011.2 ml @ 100 mls/ hr DAILY 04/06/20 10:00 04/07/20 12:51 DC 04/07/20 12:16 100 MLS/HR Ondansetron HCl (Zofran) 4 mg PRN Q8HRS PRN 04/05/20 22:00 04/06/20 08:21 DC 04/05/20 23:42 4 MG Pantoprazole Sodium (PROTONIX VIAL for IV PUSH) 40 mg BIDWMEALS 04/07/20 17:00 04/08/20 08:03 40 MG Pantoprazole Sodium 80 mg/ Sodium Chloride 100 ml @ 10 mls/hr Q10H 04/05/20 18:45 04/07/20 11:49 DC 04/07/20 00:07 10 MLS/HR Piperacillin Sod/ Tazobactam Sod (Zosyn Per Pharmacy) 1 each PRN DAILY PRN 04/05/20 22:00 04/06/20 08:21 DC Piperacillin Sod/ Tazobactam Sod 2.25 gm/Sodium Chloride 50 ml @ 100 mls/hr Q6HRS 04/05/20 23:00 04/06/20 08:16 DC 04/06/20 05:10 100 MLS/HR Potassium Chloride (Klor-Con) 40 meq 1X ONCE 04/08/20 05:45 04/08/20 05:46 DC 04/08/20 06:02 40 MEQ Propofol (Diprivan) 200 mg STK-MED ONCE 04/07/20 11:20 04/07/20 11:20 DC Ringer's Solution 1,000 ml @ 50 mls/hr Q20H 04/07/20 07:00 04/07/20 18:59 DC 04/07/20 10:01 50 MLS/HR Sodium Bicarbonate 50 meq/Sodium Phosphate 40 mmol/ Dextrose 1,063.3333 ml @ 100 mls/hr [id number] 04/07/20 14:00 04/08/20 00:38 100 MLS/HR Sodium Bicarbonate (Sodium Bicarb Adult 8.4% Syr) 50 meq 1X ONCE 04/06/20 09:00 04/06/20 09:01 DC 04/06/20 08:56 50 MEQ Sodium Chloride 1,000 ml @ 1,000 mls/hr 1X ONCE 04/05/20 23:30 04/06/20 00:29 DC 04/06/20 00:49 1,000 MLS/HR Vancomycin HCl (Vanco Per Pharmacy) 1 each PRN DAILY PRN 04/05/20 22:00 04/06/20 08:21 DC 04/06/20 02:45 1 EACH Vancomycin HCl (Vancomycin Trough Level) 1 each 1X ONCE 04/09/20 22:30 04/06/20 08:21 DC Vancomycin HCl 1.75 gm/Sodium Chloride 500 ml @ 250 mls/hr 1X ONCE 04/05/20 23:00 04/06/20 00:59 DC 04/05/20 23:27 250 MLS/HR Vancomycin HCl 1 gm/Sodium Chloride 250 ml @ 250 mls/hr Q48H 04/07/20 23:00 04/06/20 08:21 DC Lab Laboratory Tests Test 04/07/20 12:16 04/07/20 16:33 04/08/20 04:00 04/08/20 08:01 Glucose (Fingerstick) 135 mg/dL (70-99) 191 mg/dL (70-99) 144 mg/dL (70-99) White Blood Count 3.8 x10^3/uL (4.0-11.0) Red Blood Count 3.35 x10^6/uL (4.30-5.70) Hemoglobin 10.6 g/dL (13.0-17.5) Hematocrit 30.8 % (39.0-53.0) Mean Corpuscular Volume 92 fL (79-100) Mean Corpuscular Hemoglobin 32 pg (25-35) Mean Corpuscular Hemoglobin Concent 34 g/dL (31-37) Red Cell Distribution Width 14.0 % (11.5-14.5) Platelet Count 49 x10^3/uL (140-400) Neutrophils (%) (Auto) 73 % (31-73) Lymphocytes (%) (Auto) 18 % (24-48) Monocytes (%) (Auto) 6 % (0-9) Eosinophils (%) (Auto) 2 % (0-3) Basophils (%) (Auto) 0 % (0-3) Neutrophils # (Auto) 2.8 x10^3/uL (1.8-7.7) Lymphocytes # (Auto) 0.7 x10^3/uL (1.0-4.8) Monocytes # (Auto) 0.2 x10^3/uL (0.0-1.1) Eosinophils # (Auto) 0.1 x10^3/uL (0.0-0.7) Basophils # (Auto) 0.0 x10^3/uL (0.0-0.2) Sodium Level 144 mmol/L (136-145) Potassium Level 2.7 mmol/L (3.5-5.1) Chloride Level 107 mmol/L (98-107) Carbon Dioxide Level 27 mmol/L (21-32) Anion Gap 10 (6-14) Blood Urea Nitrogen 42 mg/dL (8-26) Creatinine 2.6 mg/dL (0.7-1.3) Estimated GFR (Cockcroft-Gault) 30.2 Glucose Level 143 mg/dL (70-99) Calcium Level 7.6 mg/dL (8.5-10.1) Phosphorus Level 3.0 mg/dL (2.6-4.7) Magnesium Level 1.9 mg/dL (1.8-2.4) Albumin 2.5 g/dL (3.4-5.0) Results All relevant outside records, renal labs, imaging studies, telemetry/EKG's were reviewed. Justicifation of Admission Dx: Justifications for Admission: Justification of Admission Dx: N/A ODILIA WEAVER MD Apr 08, 2020 10:58
[2020-04-08] MEDS ORDERED: PHENOL ORAL SPRAY 177ML BOTTLE. PO PRN (11:00)
[2020-04-08] MEDS ORDERED: BENZOCAINE 10% ORAL GEL 7GM TUBE. TP PRN (11:00)
--- NOTE | 2020-04-08 11:07 | PDOC ---
[employer] PROGRESS NOTE Date of Service DOS: DATE: 04/08/20 TIME: 10:56 Chief Complaint Chief Complaint Upper GI bleed Leukocytosis Bandemia NICKI Lactic acidosis Alcohol intoxication History of alcohol abuse Transaminitis Plan: Consult GI PPI drip Patient received Zosyn and vancomycin in the ER Continue broad-spectrum antibiotics with Rocephin due to GI bleeding concern for SBP Will obtain noncontrast CT abdomen Blood cultures pending Stool occult blood negative Alcohol withdrawal treatment with daily banana bag, thiamine, folic acid, Ativan as needed Consult nephrology. Creatinine 3.6 with unknow baseline History of Present Illness History of Present Illness Patient is 64 male with past medical history of alcoholism, who presents to the ER with complaint of vomiting dark coffee-ground emesis yesterday. Patient reports associated right lower quadrant abdominal pain, diarrhea, and a syncopal episode yesterday at home. He denies head injury or loss of consciousness. Patient reportedly has increased his alcohol intake over the past 2 weeks, drinking 1-2 pints of vodka daily. He denies history of liver cirrhosis, or history of kidney disease. He denies any abdominal distention, dark stools, or fever. 04/08/2020 Patient seen status post EGD yesterday showing severe esophagitis, biopsy taken. Discussed returning to AA meetings, alcohol withdrawal protocol in place. Complains of some weakness today, encourage working with PT. Tolerating clears without abdominal pain, nausea, or vomiting. Still with sore throat following EGD that is limiting his oral intake. Benzocaine, Cepacol, Chloraseptic as needed. Advance liquid diet as tolerated. 04/07/2020 Patient afebrile overnight. Potassium improved with Lasix. CT abdomen pelvis showing mild diffuse colitis, still with some right lower quadrant abdominal pain. Continue with empiric antibiotics. We will keep n.p.o. for anticipated EGD today. Vitals/I&O Vitals/I&O: Vital Signs Date Time Temp Pulse Resp B/P (MAP) Pulse Ox O2 Delivery O2 Flow Rate FiO2 04/08/20 10:23 98.3 85 16 156/95 (115) 99 Room Air 98.3 04/07/20 11:44 4 I & O 04/07/20 04/07/20 04/08/20 15:00 23:00 07:00 Intake Total 460 ml 2300 ml 2045 ml Output Total 1100 ml 300 ml Balance 460 ml 1200 ml 1745 ml Physical Exam General: Alert Heart: Regular rate Lungs: Clear Abdomen: Other (Right lower quadrant tenderness) Extremities: No cyanosis, No edema Skin: No rashes, No breakdown Labs Labs: Laboratory Tests Test 04/07/20 12:16 04/07/20 16:33 04/08/20 04:00 04/08/20 08:01 Glucose (Fingerstick) 135 mg/dL (70-99) 191 mg/dL (70-99) 144 mg/dL (70-99) White Blood Count 3.8 x10^3/uL (4.0-11.0) Red Blood Count 3.35 x10^6/uL (4.30-5.70) Hemoglobin 10.6 g/dL (13.0-17.5) Hematocrit 30.8 % (39.0-53.0) Mean Corpuscular Volume 92 fL (79-100) Mean Corpuscular Hemoglobin 32 pg (25-35) Mean Corpuscular Hemoglobin Concent 34 g/dL (31-37) Red Cell Distribution Width 14.0 % (11.5-14.5) Platelet Count 49 x10^3/uL (140-400) Neutrophils (%) (Auto) 73 % (31-73) Lymphocytes (%) (Auto) 18 % (24-48) Monocytes (%) (Auto) 6 % (0-9) Eosinophils (%) (Auto) 2 % (0-3) Basophils (%) (Auto) 0 % (0-3) Neutrophils # (Auto) 2.8 x10^3/uL (1.8-7.7) Lymphocytes # (Auto) 0.7 x10^3/uL (1.0-4.8) Monocytes # (Auto) 0.2 x10^3/uL (0.0-1.1) Eosinophils # (Auto) 0.1 x10^3/uL (0.0-0.7) Basophils # (Auto) 0.0 x10^3/uL (0.0-0.2) Sodium Level 144 mmol/L (136-145) Potassium Level 2.7 mmol/L (3.5-5.1) Chloride Level 107 mmol/L (98-107) Carbon Dioxide Level 27 mmol/L (21-32) Anion Gap 10 (6-14) Blood Urea Nitrogen 42 mg/dL (8-26) Creatinine 2.6 mg/dL (0.7-1.3) Estimated GFR (Cockcroft-Gault) 30.2 Glucose Level 143 mg/dL (70-99) Calcium Level 7.6 mg/dL (8.5-10.1) Phosphorus Level 3.0 mg/dL (2.6-4.7) Magnesium Level 1.9 mg/dL (1.8-2.4) Albumin 2.5 g/dL (3.4-5.0) Review of Systems Review of Systems: Sore throat, weakness. Denies fever. Assessment and Plan Assessmemt and Plan Problems Medical Problems: (1) Alcohol intoxication Status: Acute (2) Bandemia without diagnosis of specific infection Status: Acute (3) Hyperkalemia Status: Acute (4) Renal insufficiency Status: Acute (5) Upper GI bleed Status: Acute Comment Review of Relevant I have reviewed the following items hernandez (where applicable) has been applied. Medications: Current Medications Medications (Trade) Dose Ordered Sig/Camille Route PRN Reason Start Time Stop Time Status Last Admin Dose Admin Ceftriaxone Sodium (Rocephin) 2 gm Q24H IVP 04/07/20 12:00 04/08/20 10:48 DC 04/07/20 12:16 Pantoprazole Sodium (PROTONIX VIAL for IV PUSH) 40 mg BIDWMEALS IVP 04/07/20 17:00 04/08/20 08:03 Sodium Bicarbonate 50 meq/Sodium Phosphate 40 mmol/ Dextrose 1,063.3333 ml @ 100 mls/hr [id number] IV 04/07/20 14:00 04/08/20 00:38 Potassium Chloride (Klor-Con) 40 meq 1X ONCE PO 04/08/20 05:45 04/08/20 05:46 DC 04/08/20 06:02 Albuterol Sulfate (Ventolin Neb Soln) 2.5 mg PRN Q4HRS PRN NEB wheezing 04/08/20 05:45 04/08/20 05:54 Justifications for Admission Other Justification NAS GREGORY MD Apr 08, 2020 11:07
[2020-04-08] MEDS: POTASSIUM CHLORIDE 40 MEQ in IV 1/2 NORMAL SALINE 1,000 ML IV SCH ×2 (12:03→23:43)
--- NOTE | 2020-04-08 13:06 | NUR ---
SS following up with discharge planning. SS reviewed pt chart and discussed with pt RN. Pt is currently on room air and having potassium replaced today. PT/OT recommended acute rehabilitation. SS was notified that pt has no rehab benefits with his [employer] [facility]. Pt is able to follow up at [facility] for rehabilitation needs. Nephrology following. SS will continue to follow for discharge planning.
--- NOTE | 2020-04-08 13:53 | NUR ---
RN NOTE this RN took over care of this patient and agrees with previous job hand. patient in chair with call light within reach
[2020-04-09 02:50] VITALS: BP 157/101
[2020-04-09 05:33] LABS: BASO % 0 % (0-3); EOS # 0.1 x10^3/uL (0.0-0.7); EOS % 4 % (0-3); HEMATOCRIT 29.8 % (39.0-53.0); HEMOGLOBIN 10.2 g/dL (13.0-17.5); LYMPH # 0.8 x10^3/uL (1.0-4.8); LYMPH % 21 % (24-48); MEAN CORPUSCULAR HEMOGLOBIN 32 pg (25-35); MEAN CORPUSCULAR HGB CONC 34 g/dL (31-37); MEAN CORPUSCULAR VOLUME 93 fL (79-100); MONO # 0.2 x10^3/uL (0.0-1.1); MONO % 6 % (0-9); NEUT # 2.5 x10^3/uL (1.8-7.7); NEUT % 69 % (31-73); PLATELET COUNT 42 x10^3/uL (140-400); RED BLOOD COUNT 3.21 x10^6/uL (4.30-5.70); RED CELL DISTRIBUTION WIDTH 13.9 % (11.5-14.5); WHITE BLOOD COUNT 3.7 x10^3/uL (4.0-11.0)
[2020-04-09 06:00] LABS: ALBUMIN 2.4 g/dL (3.4-5.0); CALCIUM 7.8 mg/dL (8.5-10.1); CREATININE 1.8 mg/dL (0.7-1.3); GFR 46.2; PHOSPHORUS 2.3 mg/dL (2.6-4.7); POTASSIUM 3.2 mmol/L (3.5-5.1)
[2020-04-09 07:00] VITALS: BP 153/93
[2020-04-09] MEDS: INSULIN LISPRO 300 UNITS/3 ML VIAL. SQ SCH ×3 (08:00→17:00)
[2020-04-09] MEDS: PANTOPRAZOLE IV PUSH 40 MG VIAL. IVP SCH (09:05)
[2020-04-09] MEDS: BENZOCAINE/MENTHOL LOZENGE. PO PRN ×2 (09:05→20:39)
[2020-04-09] MEDS: HYDROcodone/APAP 5/325MG 1 TAB TABLET PO PRN ×2 (09:14→20:42)
[2020-04-09] MEDS: POTASSIUM CHLORIDE 10MEQ 100 ML IV SCH ×4 (09:16→13:28)
[2020-04-09] MEDS: guaiFENesin DM 200MG/20MG 10 ML SYRUP PO PRN (09:16)
[2020-04-09 10:28] VITALS: BP 153/96
--- NOTE | 2020-04-09 11:15 | PDOC ---
[employer] PROGRESS NOTE Date of Service DOS: DATE: 04/09/20 TIME: 11:13 Chief Complaint Chief Complaint Upper GI bleed Leukocytosis Bandemia NICKI Lactic acidosis Alcohol intoxication History of alcohol abuse Transaminitis Physical debility Plan: Consult GI PPI drip Patient received Zosyn and vancomycin in the ER Continue broad-spectrum antibiotics with Rocephin due to GI bleeding concern for SBP Will obtain noncontrast CT abdomen Blood cultures pending Stool occult blood negative Alcohol withdrawal treatment with daily banana bag, thiamine, folic acid, Ativan as needed Consult nephrology. Creatinine 3.6 with unknow baseline History of Present Illness History of Present Illness Patient is 64 male with past medical history of alcoholism, who presents to the ER with complaint of vomiting dark coffee-ground emesis yesterday. Patient reports associated right lower quadrant abdominal pain, diarrhea, and a syncopal episode yesterday at home. He denies head injury or loss of consciousness. Patient reportedly has increased his alcohol intake over the past 2 weeks, drinking 1-2 pints of vodka daily. He denies history of liver cirrhosis, or history of kidney disease. He denies any abdominal distention, dark stools, or fever. 04/09/2020 Patient evaluated bedside. Afebrile. Occupational Therapy recommending SNF. Potassium improving. Sore throat improving, tolerated soft diet this morning. Denies abdominal pain. Discharge disposition may be SNF Saturday or home with home health depending on how weakness progresses. 04/08/2020 Patient seen status post EGD yesterday showing severe esophagitis, biopsy taken. Discussed returning to AA meetings, alcohol withdrawal protocol in place. Complains of some weakness today, encourage working with PT. Tolerating clears without abdominal pain, nausea, or vomiting. Still with sore throat following EGD that is limiting his oral intake. Benzocaine, Cepacol, Chloraseptic as needed. Advance liquid diet as tolerated. 04/07/2020 Patient afebrile overnight. Potassium improved with Lasix. CT abdomen pelvis showing mild diffuse colitis, still with some right lower quadrant abdominal pain. Continue with empiric antibiotics. We will keep n.p.o. for anticipated EGD today. Vitals/I&O Vitals/I&O: Vital Signs Date Time Temp Pulse Resp B/P (MAP) Pulse Ox O2 Delivery O2 Flow Rate FiO2 04/09/20 10:28 99.4 75 16 153/96 (115) 96 Room Air 99.4 04/09/20 10:14 4.0 I & O 04/08/20 04/08/20 04/09/20 15:00 23:00 07:00 Intake Total 1300 ml 440 ml Output Total 250 ml 775 ml 500 ml Balance -250 ml 525 ml -60 ml Physical Exam General: Alert Heart: Regular rate Lungs: Clear Abdomen: Other (Right lower quadrant tenderness) Extremities: No cyanosis, No edema Skin: No rashes, No breakdown Labs Labs: Laboratory Tests Test 04/08/20 11:59 04/08/20 16:47 04/09/20 05:00 04/09/20 07:16 Glucose (Fingerstick) 163 mg/dL (70-99) 172 mg/dL (70-99) 110 mg/dL (70-99) White Blood Count 3.7 x10^3/uL (4.0-11.0) Red Blood Count 3.21 x10^6/uL (4.30-5.70) Hemoglobin 10.2 g/dL (13.0-17.5) Hematocrit 29.8 % (39.0-53.0) Mean Corpuscular Volume 93 fL (79-100) Mean Corpuscular Hemoglobin 32 pg (25-35) Mean Corpuscular Hemoglobin Concent 34 g/dL (31-37) Red Cell Distribution Width 13.9 % (11.5-14.5) Platelet Count 42 x10^3/uL (140-400) Neutrophils (%) (Auto) 69 % (31-73) Lymphocytes (%) (Auto) 21 % (24-48) Monocytes (%) (Auto) 6 % (0-9) Eosinophils (%) (Auto) 4 % (0-3) Basophils (%) (Auto) 0 % (0-3) Neutrophils # (Auto) 2.5 x10^3/uL (1.8-7.7) Lymphocytes # (Auto) 0.8 x10^3/uL (1.0-4.8) Monocytes # (Auto) 0.2 x10^3/uL (0.0-1.1) Eosinophils # (Auto) 0.1 x10^3/uL (0.0-0.7) Basophils # (Auto) 0.0 x10^3/uL (0.0-0.2) Sodium Level 142 mmol/L (136-145) Potassium Level 3.2 mmol/L (3.5-5.1) Chloride Level 107 mmol/L (98-107) Carbon Dioxide Level 28 mmol/L (21-32) Anion Gap 7 (6-14) Blood Urea Nitrogen 26 mg/dL (8-26) Creatinine 1.8 mg/dL (0.7-1.3) Estimated GFR (Cockcroft-Gault) 46.2 Glucose Level 117 mg/dL (70-99) Calcium Level 7.8 mg/dL (8.5-10.1) Phosphorus Level 2.3 mg/dL (2.6-4.7) Magnesium Level 1.7 mg/dL (1.8-2.4) Albumin 2.4 g/dL (3.4-5.0) Review of Systems Review of Systems: Denies fever, denies shortness of breath, denies chest pain. Assessment and Plan Assessmemt and Plan Problems Medical Problems: (1) Alcohol intoxication Status: Acute (2) Bandemia without diagnosis of specific infection Status: Acute (3) Hyperkalemia Status: Acute (4) Renal insufficiency Status: Acute (5) Upper GI bleed Status: Acute Comment Review of Relevant I have reviewed the following items hernandez (where applicable) has been applied. Medications: Current Medications Medications (Trade) Dose Ordered Sig/Camille Route PRN Reason Start Time Stop Time Status Last Admin Dose Admin Potassium Chloride/Water 100 ml @ 100 mls/hr Q1H IV 04/09/20 10:00 04/09/20 13:59 04/09/20 10:30 Guaifenesin (Robitussin Dm) 10 ml PRN Q6HRS PRN PO COUGH 04/09/20 09:15 04/09/20 09:16 Justifications for Admission Other Justification NAS GREGORY MD Apr 09, 2020 11:15
[2020-04-09] MEDS: ALBUTEROL SULFATE 2.5 MG/3 ML NEBU. NEB PRN (11:25)
--- NOTE | 2020-04-09 11:47 | PDOC ---
[facility] PROGRESS NOTE Subjective Less abdominal pain and odynophagia. No vomiting. Physical Exam Lungs clear anteriorly. RRR Abdomen soft, not tender nor distended. Review of Relevant I have reviewed the following items hernandez (where applicable) has been applied. Labs Laboratory Tests Test 04/07/20 12:16 04/07/20 16:33 04/08/20 04:00 04/08/20 08:01 Glucose (Fingerstick) 135 mg/dL (70-99) 191 mg/dL (70-99) 144 mg/dL (70-99) White Blood Count 3.8 x10^3/uL (4.0-11.0) Red Blood Count 3.35 x10^6/uL (4.30-5.70) Hemoglobin 10.6 g/dL (13.0-17.5) Hematocrit 30.8 % (39.0-53.0) Mean Corpuscular Volume 92 fL (79-100) Mean Corpuscular Hemoglobin 32 pg (25-35) Mean Corpuscular Hemoglobin Concent 34 g/dL (31-37) Red Cell Distribution Width 14.0 % (11.5-14.5) Platelet Count 49 x10^3/uL (140-400) Neutrophils (%) (Auto) 73 % (31-73) Lymphocytes (%) (Auto) 18 % (24-48) Monocytes (%) (Auto) 6 % (0-9) Eosinophils (%) (Auto) 2 % (0-3) Basophils (%) (Auto) 0 % (0-3) Neutrophils # (Auto) 2.8 x10^3/uL (1.8-7.7) Lymphocytes # (Auto) 0.7 x10^3/uL (1.0-4.8) Monocytes # (Auto) 0.2 x10^3/uL (0.0-1.1) Eosinophils # (Auto) 0.1 x10^3/uL (0.0-0.7) Basophils # (Auto) 0.0 x10^3/uL (0.0-0.2) Sodium Level 144 mmol/L (136-145) Potassium Level 2.7 mmol/L (3.5-5.1) Chloride Level 107 mmol/L (98-107) Carbon Dioxide Level 27 mmol/L (21-32) Anion Gap 10 (6-14) Blood Urea Nitrogen 42 mg/dL (8-26) Creatinine 2.6 mg/dL (0.7-1.3) Estimated GFR (Cockcroft-Gault) 30.2 Glucose Level 143 mg/dL (70-99) Calcium Level 7.6 mg/dL (8.5-10.1) Phosphorus Level 3.0 mg/dL (2.6-4.7) Magnesium Level 1.9 mg/dL (1.8-2.4) Creatine Kinase 389 U/L (39-308) Albumin 2.5 g/dL (3.4-5.0) Test 04/08/20 11:59 04/08/20 16:47 04/09/20 05:00 04/09/20 07:16 Glucose (Fingerstick) 163 mg/dL (70-99) 172 mg/dL (70-99) 110 mg/dL (70-99) White Blood Count 3.7 x10^3/uL (4.0-11.0) Red Blood Count 3.21 x10^6/uL (4.30-5.70) Hemoglobin 10.2 g/dL (13.0-17.5) Hematocrit 29.8 % (39.0-53.0) Mean Corpuscular Volume 93 fL (79-100) Mean Corpuscular Hemoglobin 32 pg (25-35) Mean Corpuscular Hemoglobin Concent 34 g/dL (31-37) Red Cell Distribution Width 13.9 % (11.5-14.5) Platelet Count 42 x10^3/uL (140-400) Neutrophils (%) (Auto) 69 % (31-73) Lymphocytes (%) (Auto) 21 % (24-48) Monocytes (%) (Auto) 6 % (0-9) Eosinophils (%) (Auto) 4 % (0-3) Basophils (%) (Auto) 0 % (0-3) Neutrophils # (Auto) 2.5 x10^3/uL (1.8-7.7) Lymphocytes # (Auto) 0.8 x10^3/uL (1.0-4.8) Monocytes # (Auto) 0.2 x10^3/uL (0.0-1.1) Eosinophils # (Auto) 0.1 x10^3/uL (0.0-0.7) Basophils # (Auto) 0.0 x10^3/uL (0.0-0.2) Sodium Level 142 mmol/L (136-145) Potassium Level 3.2 mmol/L (3.5-5.1) Chloride Level 107 mmol/L (98-107) Carbon Dioxide Level 28 mmol/L (21-32) Anion Gap 7 (6-14) Blood Urea Nitrogen 26 mg/dL (8-26) Creatinine 1.8 mg/dL (0.7-1.3) Estimated GFR (Cockcroft-Gault) 46.2 Glucose Level 117 mg/dL (70-99) Calcium Level 7.8 mg/dL (8.5-10.1) Phosphorus Level 2.3 mg/dL (2.6-4.7) Magnesium Level 1.7 mg/dL (1.8-2.4) Albumin 2.4 g/dL (3.4-5.0) Laboratory Tests Test 04/08/20 11:59 04/08/20 16:47 04/09/20 05:00 04/09/20 07:16 Glucose (Fingerstick) 163 mg/dL (70-99) 172 mg/dL (70-99) 110 mg/dL (70-99) White Blood Count 3.7 x10^3/uL (4.0-11.0) Red Blood Count 3.21 x10^6/uL (4.30-5.70) Hemoglobin 10.2 g/dL (13.0-17.5) Hematocrit 29.8 % (39.0-53.0) Mean Corpuscular Volume 93 fL (79-100) Mean Corpuscular Hemoglobin 32 pg (25-35) Mean Corpuscular Hemoglobin Concent 34 g/dL (31-37) Red Cell Distribution Width 13.9 % (11.5-14.5) Platelet Count 42 x10^3/uL (140-400) Neutrophils (%) (Auto) 69 % (31-73) Lymphocytes (%) (Auto) 21 % (24-48) Monocytes (%) (Auto) 6 % (0-9) Eosinophils (%) (Auto) 4 % (0-3) Basophils (%) (Auto) 0 % (0-3) Neutrophils # (Auto) 2.5 x10^3/uL (1.8-7.7) Lymphocytes # (Auto) 0.8 x10^3/uL (1.0-4.8) Monocytes # (Auto) 0.2 x10^3/uL (0.0-1.1) Eosinophils # (Auto) 0.1 x10^3/uL (0.0-0.7) Basophils # (Auto) 0.0 x10^3/uL (0.0-0.2) Sodium Level 142 mmol/L (136-145) Potassium Level 3.2 mmol/L (3.5-5.1) Chloride Level 107 mmol/L (98-107) Carbon Dioxide Level 28 mmol/L (21-32) Anion Gap 7 (6-14) Blood Urea Nitrogen 26 mg/dL (8-26) Creatinine 1.8 mg/dL (0.7-1.3) Estimated GFR (Cockcroft-Gault) 46.2 Glucose Level 117 mg/dL (70-99) Calcium Level 7.8 mg/dL (8.5-10.1) Phosphorus Level 2.3 mg/dL (2.6-4.7) Magnesium Level 1.7 mg/dL (1.8-2.4) Albumin 2.4 g/dL (3.4-5.0) Microbiology 04/06/20 Urine Culture - Final, Complete 04/05/20 Blood Culture - Preliminary, Resulted NO GROWTH AFTER 3 DAYS Hemoglobin stable. Vitals/I & O Vital Sign - Last 24 Hours 04/08/20 04/08/20 04/08/20 04/08/20 15:23 15:25 19:40 19:53 Temp 98.4 97.8 98.4 97.8 Pulse 92 94 85 Resp 18 18 B/P (MAP) 160/96 (117) 150/95 (113) 152/88 (109) Pulse Ox 97 96 100 O2 Delivery Room Air Room Air Room Air 04/08/20 04/08/20 04/09/20 04/09/20 20:00 23:10 02:50 07:00 Temp 98.3 99.5 99.2 98.3 99.5 99.2 Pulse 86 80 77 Resp 20 20 16 B/P (MAP) 152/90 (110) 157/101 (119) 153/93 (113) Pulse Ox 98 94 97 O2 Delivery Room Air Room Air Room Air Room Air 04/09/20 04/09/20 04/09/20 04/09/20 08:00 09:14 10:14 10:28 Temp 99.4 99.4 Pulse 75 Resp 18 16 B/P (MAP) 153/96 (115) Pulse Ox 96 96 O2 Delivery Room Air Room Air Room Air Room Air O2 Flow Rate 4.0 04/09/20 11:28 Pulse Ox 98 O2 Delivery Room Air Intake and Output 04/08/20 04/08/20 04/09/20 15:00 23:00 07:00 Intake Total 1300 ml 440 ml Output Total 250 ml 775 ml 500 ml Balance -250 ml 525 ml -60 ml Problem List Problems Medical Problems: (1) Alcohol intoxication Status: Acute (2) Bandemia without diagnosis of specific infection Status: Acute (3) Hyperkalemia Status: Acute (4) Renal insufficiency Status: Acute (5) Upper GI bleed Status: Acute Assessment Severe esophagitis, clinically better. Alcohol abuse. Mild pancytopenia; suspect direct alcohol toxicity. Should improve with time off the booze. Plan of Care Note Go to po PPI. Stay sober. If continues to improve, advance diet. Justicifation of Admission Dx: Justifications for Admission: Justification of Admission Dx: N/A TRAMAINE LEE MD Apr 09, 2020 11:47
--- NOTE | 2020-04-09 13:50 | PDOC ---
DATE OF SERVICE: DOS: DATE: 04/09/20 TIME: 13:49 SUBJECTIVE ROS Follow-up for acute kidney injury Patient claims he is doing well overall CVS: no Orthopnea, no CP RESP: no SOB, no PRESTON GI: no Nausea, no Vomiting : no Dysuria, no Urgency OBJECTIVE Vital Signs Vital Signs Date Time Temp Pulse Resp B/P (MAP) Pulse Ox O2 Delivery O2 Flow Rate FiO2 04/09/20 11:28 98 Room Air 04/09/20 10:28 99.4 75 16 153/96 (115) 99.4 04/09/20 10:14 4.0 I & 0 Intake and Output 04/09/20 07:00 Intake Total 1740 ml Output Total 1525 ml Balance 215 ml Intake Oral 1740 ml Output Urine Total 1525 ml PHYSICAL EXAM Physical Exam GEN: Much more alert and awake, Oriented x 3, In no distress, EYES: Sclera Anicteric Conjunctiva Normal EN: No EN Drainage, Mucous Membranes moist NECK: no JVD, min JVP, Supple, no Thyromegaly CVS: S1S2, ? Murmur, No Gallop, No Rub,no Edema RESP: no Rales, no Rhonchi,no Acc. Muscle Use GI: BS + ve, NO Bruit, Non Tender, Non Distended : no CVA tenderness, no Suprapubic Tenderness DIAGNOSIS/ASSESSMENT Assessment & Plan Acute kidney injury: Now much improved Hypokalemia resume replacement. One-time K-Phos will be ordered Hypocalcemia: . Corrects for hypoalbuminemia. Recheck CPK is trending downwards also Hypophosphatemia: IV K-Phos x1 today. Anticipate this to improve with better oral intake Intravascular volume depletion: Recheck labs and change blood IV fluids as needed. Urine output is good COMMENT/RELEVANT DATA Meds Current Medications Medications (Trade) Dose Ordered Sig/Camille Start Time Stop Time Status Last Admin Dose Admin Acetaminophen/ Hydrocodone Bitart (Lortab 5/325) 1 tab PRN Q4HRS PRN 04/06/20 02:15 04/09/20 09:14 1 TAB Albuterol Sulfate (Ventolin Neb Soln) 2.5 mg PRN Q4HRS PRN 04/08/20 05:45 04/09/20 11:25 2.5 MG Benzocaine (Ora-Jel) 1 jono PRN QID PRN 04/08/20 11:00 Calcium Gluconate (Calcium Gluconate) 1,000 mg 1X ONCE 04/06/20 09:00 04/06/20 09:01 DC 04/06/20 08:56 1,000 MG Ceftriaxone Sodium (Rocephin) 2 gm Q24H 04/07/20 12:00 04/08/20 10:48 DC 04/07/20 12:16 2 GM Chlordiazepoxide (Librium) 100 mg PRN Q1HR PRN 04/06/20 07:30 04/06/20 07:35 DC Clonidine HCl (Catapres) 0.1 mg PRN Q1HR PRN 04/06/20 07:30 Dextrose (Dextrose 50%-Water Syringe) 12.5 gm PRN Q15MIN PRN 04/06/20 08:45 Diphenhydramine HCl (Benadryl) 25 mg PRN Q15MIN PRN 04/06/20 07:30 Famotidine (Pepcid Vial) 20 mg 1X ONCE 04/05/20 19:00 04/05/20 19:01 DC 04/05/20 19:26 20 MG Folic Acid (Folic Acid) 1 mg DAILY 04/11/20 09:00 Furosemide (Lasix) 40 mg 1X ONCE 04/06/20 10:30 04/06/20 10:31 DC 04/06/20 10:17 40 MG Guaifenesin (Robitussin Dm) 10 ml PRN Q6HRS PRN 04/09/20 09:15 04/09/20 09:16 10 ML Haloperidol Lactate (Haldol Inj) 5 mg PRN Q4HRS PRN 04/06/20 07:30 Insulin Human Lispro (HumaLOG) 0-5 UNITS TIDWMEALS 04/06/20 12:00 04/08/20 17:19 2 UNITS Insulin Human Regular (HumuLIN R VIAL) 5 unit 1X ONCE 04/06/20 09:00 04/06/20 09:01 DC 04/06/20 09:00 5 UNIT Lidocaine HCl (Lidocaine Pf 2% Vial) 5 ml STK-MED ONCE 04/07/20 11:20 04/07/20 11:20 DC Lorazepam (Ativan Inj) 4 mg PRN Q15MIN PRN 04/06/20 07:30 UNV Lorazepam (Ativan) 8 mg PRN Q1HR PRN 04/06/20 07:30 Magnesium Sulfate 50 ml @ 25 mls/hr PRN DAILY PRN 04/06/20 12:45 Metoclopramide HCl (Reglan Vial) 10 mg 1X ONCE 04/05/20 19:00 04/05/20 19:01 DC 04/05/20 19:29 10 MG Multivitamins (Thera M Plus) 1 tab DAILY 04/11/20 09:00 Multivitamins 10 ml/Thiamine HCl 100 mg/Folic Acid 1 mg/Sodium Chloride 1,011.2 ml @ 100 mls/ hr DAILY 04/06/20 10:00 04/07/20 12:51 DC 04/07/20 12:16 100 MLS/HR Ondansetron HCl (Zofran) 4 mg PRN Q8HRS PRN 04/05/20 22:00 04/06/20 08:21 DC 04/05/20 23:42 4 MG Pantoprazole Sodium (PROTONIX VIAL for IV PUSH) 40 mg BIDWMEALS 04/07/20 17:00 04/09/20 11:49 DC 04/09/20 09:05 40 MG Pantoprazole Sodium (Protonix) 40 mg BIDAC 04/09/20 16:30 Pantoprazole Sodium 80 mg/ Sodium Chloride 100 ml @ 10 mls/hr Q10H 04/05/20 18:45 04/07/20 11:49 DC 04/07/20 00:07 10 MLS/HR Phenol (Chloraseptic) 1 spray PRN Q2HR PRN 04/08/20 11:00 04/08/20 12:42 1 SPRAY Piperacillin Sod/ Tazobactam Sod (Zosyn Per Pharmacy) 1 each PRN DAILY PRN 04/05/20 22:00 04/06/20 08:21 DC Piperacillin Sod/ Tazobactam Sod 2.25 gm/Sodium Chloride 50 ml @ 100 mls/hr Q6HRS 04/05/20 23:00 04/06/20 08:16 DC 04/06/20 05:10 100 MLS/HR Potassium Chloride 40 meq/ Sodium Chloride 1,020 ml @ 100 mls/hr [id number] 04/08/20 11:00 04/09/20 06:59 DC 04/08/20 23:43 100 MLS/HR Potassium Chloride/Water 100 ml @ 100 mls/hr Q1H 04/09/20 10:00 04/09/20 13:59 04/09/20 13:28 100 MLS/HR Potassium Chloride (Klor-Con) 40 meq 1X ONCE 04/08/20 05:45 04/08/20 05:46 DC 04/08/20 06:02 40 MEQ Propofol (Diprivan) 200 mg STK-MED ONCE 04/07/20 11:20 04/07/20 11:20 DC Ringer's Solution 1,000 ml @ 50 mls/hr Q20H 04/07/20 07:00 04/07/20 18:59 DC 04/07/20 10:01 50 MLS/HR Sodium Bicarbonate 50 meq/Sodium Phosphate 40 mmol/ Dextrose 1,063.3333 ml @ 100 mls/hr [id number] 04/07/20 14:00 04/08/20 10:58 DC 04/08/20 00:38 100 MLS/HR Sodium Bicarbonate (Sodium Bicarb Adult 8.4% Syr) 50 meq 1X ONCE 04/06/20 09:00 04/06/20 09:01 DC 04/06/20 08:56 50 MEQ Sodium Chloride 1,000 ml @ 1,000 mls/hr 1X ONCE 04/05/20 23:30 04/06/20 00:29 DC 04/06/20 00:49 1,000 MLS/HR Throat Lozenges (Cepacol Sore Throat Lozenge) 1 rosaura PRN Q2HRS PRN 04/08/20 11:00 04/09/20 09:05 1 ROSAURA Vancomycin HCl (Vanco Per Pharmacy) 1 each PRN DAILY PRN 04/05/20 22:00 04/06/20 08:21 DC 04/06/20 02:45 1 EACH Vancomycin HCl (Vancomycin Trough Level) 1 each 1X ONCE 04/09/20 22:30 04/06/20 08:21 DC Vancomycin HCl 1.75 gm/Sodium Chloride 500 ml @ 250 mls/hr 1X ONCE 04/05/20 23:00 04/06/20 00:59 DC 04/05/20 23:27 250 MLS/HR Vancomycin HCl 1 gm/Sodium Chloride 250 ml @ 250 mls/hr Q48H 04/07/20 23:00 04/06/20 08:21 DC Lab Laboratory Tests Test 04/08/20 16:47 04/09/20 05:00 04/09/20 07:16 04/09/20 11:34 Glucose (Fingerstick) 172 mg/dL (70-99) 110 mg/dL (70-99) 122 mg/dL (70-99) White Blood Count 3.7 x10^3/uL (4.0-11.0) Red Blood Count 3.21 x10^6/uL (4.30-5.70) Hemoglobin 10.2 g/dL (13.0-17.5) Hematocrit 29.8 % (39.0-53.0) Mean Corpuscular Volume 93 fL (79-100) Mean Corpuscular Hemoglobin 32 pg (25-35) Mean Corpuscular Hemoglobin Concent 34 g/dL (31-37) Red Cell Distribution Width 13.9 % (11.5-14.5) Platelet Count 42 x10^3/uL (140-400) Neutrophils (%) (Auto) 69 % (31-73) Lymphocytes (%) (Auto) 21 % (24-48) Monocytes (%) (Auto) 6 % (0-9) Eosinophils (%) (Auto) 4 % (0-3) Basophils (%) (Auto) 0 % (0-3) Neutrophils # (Auto) 2.5 x10^3/uL (1.8-7.7) Lymphocytes # (Auto) 0.8 x10^3/uL (1.0-4.8) Monocytes # (Auto) 0.2 x10^3/uL (0.0-1.1) Eosinophils # (Auto) 0.1 x10^3/uL (0.0-0.7) Basophils # (Auto) 0.0 x10^3/uL (0.0-0.2) Sodium Level 142 mmol/L (136-145) Potassium Level 3.2 mmol/L (3.5-5.1) Chloride Level 107 mmol/L (98-107) Carbon Dioxide Level 28 mmol/L (21-32) Anion Gap 7 (6-14) Blood Urea Nitrogen 26 mg/dL (8-26) Creatinine 1.8 mg/dL (0.7-1.3) Estimated GFR (Cockcroft-Gault) 46.2 Glucose Level 117 mg/dL (70-99) Calcium Level 7.8 mg/dL (8.5-10.1) Phosphorus Level 2.3 mg/dL (2.6-4.7) Magnesium Level 1.7 mg/dL (1.8-2.4) Albumin 2.4 g/dL (3.4-5.0) Results All relevant outside records, renal labs, imaging studies, telemetry/EKG's were reviewed. Justicifation of Admission Dx: Justifications for Admission: Justification of Admission Dx: N/A ODILIA WEAVER MD Apr 09, 2020 13:50
[2020-04-09] MEDS ORDERED: NORMAL SALINE IV ONE (14:00)
[2020-04-09] MEDS ORDERED: POTASSIUM PHOS M BASIC D BASIC IV ONE (14:00)
[2020-04-09 14:58] VITALS: BP 129/79
--- NOTE | 2020-04-09 15:22 | NUR ---
I have read the assessment documentation and concur unless otherwise documented from myself or primary RN. Filomena Amezcua, RN [facility]
[2020-04-09] MEDS: POTASSIUM PHOS,M-BASIC-D-BASIC 20 MMOL in IV NORMAL SALINE 250ML 250 ML IV SCH ×2 (15:52→17:30)
[2020-04-09] MEDS: PANTOPRAZOLE 40 MG TABLET.DR. PO SCH (15:54)
[2020-04-09 18:55] VITALS: BP 138/89
[2020-04-09 22:36] VITALS: BP 145/74
[2020-04-10 03:22] VITALS: BP 122/67
[2020-04-10 05:42] LABS: ALBUMIN 2.6 g/dL (3.4-5.0); CALCIUM 8.2 mg/dL (8.5-10.1); CREATININE 1.6 mg/dL (0.7-1.3); GFR 52.9; POTASSIUM 3.7 mmol/L (3.5-5.1)
[2020-04-10 05:45] LABS: BASO % 0 % (0-3); EOS # 0.1 x10^3/uL (0.0-0.7); EOS % 4 % (0-3); HEMATOCRIT 29.3 % (39.0-53.0); HEMOGLOBIN 9.9 g/dL (13.0-17.5); LYMPH # 0.9 x10^3/uL (1.0-4.8); LYMPH % 28 % (24-48); MEAN CORPUSCULAR HEMOGLOBIN 32 pg (25-35); MEAN CORPUSCULAR HGB CONC 34 g/dL (31-37); MEAN CORPUSCULAR VOLUME 94 fL (79-100); MONO # 0.3 x10^3/uL (0.0-1.1); MONO % 9 % (0-9); NEUT # 1.8 x10^3/uL (1.8-7.7); NEUT % 59 % (31-73); PLATELET COUNT 49 x10^3/uL (140-400); RED BLOOD COUNT 3.13 x10^6/uL (4.30-5.70); RED CELL DISTRIBUTION WIDTH 13.6 % (11.5-14.5); WHITE BLOOD COUNT 3.1 x10^3/uL (4.0-11.0)
[2020-04-10 07:00] VITALS: BP 157/98
--- NOTE | 2020-04-10 07:20 | PDOC ---
[employer] PROGRESS NOTE Date of Service DOS: DATE: 04/10/20 TIME: 07:17 Chief Complaint Chief Complaint Upper GI bleed Leukocytosis Bandemia NICKI Lactic acidosis Alcohol intoxication History of alcohol abuse Transaminitis Physical debility Plan: Consult GI PPI drip Patient received Zosyn and vancomycin in the ER Continue broad-spectrum antibiotics with Rocephin due to GI bleeding concern for SBP Will obtain noncontrast CT abdomen Blood cultures pending Stool occult blood negative Alcohol withdrawal treatment with daily banana bag, thiamine, folic acid, Ativan as needed Consult nephrology. Creatinine 3.6 with unknow baseline History of Present Illness History of Present Illness Patient is 64 male with past medical history of alcoholism, who presents to the ER with complaint of vomiting dark coffee-ground emesis yesterday. Patient reports associated right lower quadrant abdominal pain, diarrhea, and a syncopal episode yesterday at home. He denies head injury or loss of consciousness. Patient reportedly has increased his alcohol intake over the past 2 weeks, drinking 1-2 pints of vodka daily. He denies history of liver cirrhosis, or history of kidney disease. He denies any abdominal distention, dark stools, or fever. 04/10/2020 Patient seen and evaluated bedside. Afebrile. Sore throat and weakness improving. He is working with PT/OT, recommending acute rehab. Patient feels his strength is improving he may be to be able to discharge home tomorrow. Will reevaluate on Saturday with social insurance analyst for possible placement versus home with self-care. Switch to oral PPIs when he is able to tolerate regular diet. Eating soft diet today, applesauce. Denies abdominal pain, denies fever. 04/09/2020 Patient evaluated bedside. Afebrile. Occupational Therapy recommending SNF. P otassium improving. Sore throat improving, tolerated soft diet this morning. Denies abdominal pain. Discharge disposition may be SNF Saturday or home with home health depending on how weakness progresses. 04/08/2020 Patient seen status post EGD yesterday showing severe esophagitis, biopsy taken. Discussed returning to AA meetings, alcohol withdrawal protocol in place. Complains of some weakness today, encourage working with PT. Tolerating clears without abdominal pain, nausea, or vomiting. Still with sore throat following EGD that is limiting his oral intake. Benzocaine, Cepacol, Chloraseptic as needed. Advance liquid diet as tolerated. 04/07/2020 Patient afebrile overnight. Potassium improved with Lasix. CT abdomen pelvis showing mild diffuse colitis, still with some right lower quadrant abdominal pain. Continue with empiric antibiotics. We will keep n.p.o. for anticipated EGD today. Vitals/I&O Vitals/I&O: Vital Signs Date Time Temp Pulse Resp B/P (MAP) Pulse Ox O2 Delivery O2 Flow Rate FiO2 04/10/20 07:00 98.9 74 18 157/98 (117) 94 Room Air 98.9 04/09/20 10:14 4.0 I & O 04/09/20 04/09/20 04/10/20 15:00 23:00 07:00 Intake Total 600 ml 650 ml 240 ml Output Total 1180 ml 920 ml 550 ml Balance -580 ml -270 ml -310 ml Physical Exam General: Alert Heart: Regular rate Lungs: Clear Abdomen: Other (Right lower quadrant tenderness) Extremities: No cyanosis, No edema Skin: No rashes, No breakdown Labs Labs: Laboratory Tests Test 04/09/20 11:34 04/09/20 16:31 04/10/20 03:30 04/10/20 05:00 Glucose (Fingerstick) 122 mg/dL (70-99) 143 mg/dL (70-99) White Blood Count 3.1 x10^3/uL (4.0-11.0) Red Blood Count 3.13 x10^6/uL (4.30-5.70) Hemoglobin 9.9 g/dL (13.0-17.5) Hematocrit 29.3 % (39.0-53.0) Mean Corpuscular Volume 94 fL (79-100) Mean Corpuscular Hemoglobin 32 pg (25-35) Mean Corpuscular Hemoglobin Concent 34 g/dL (31-37) Red Cell Distribution Width 13.6 % (11.5-14.5) Platelet Count 49 x10^3/uL (140-400) Neutrophils (%) (Auto) 59 % (31-73) Lymphocytes (%) (Auto) 28 % (24-48) Monocytes (%) (Auto) 9 % (0-9) Eosinophils (%) (Auto) 4 % (0-3) Basophils (%) (Auto) 0 % (0-3) Neutrophils # (Auto) 1.8 x10^3/uL (1.8-7.7) Lymphocytes # (Auto) 0.9 x10^3/uL (1.0-4.8) Monocytes # (Auto) 0.3 x10^3/uL (0.0-1.1) Eosinophils # (Auto) 0.1 x10^3/uL (0.0-0.7) Basophils # (Auto) 0.0 x10^3/uL (0.0-0.2) Sodium Level 144 mmol/L (136-145) Potassium Level 3.7 mmol/L (3.5-5.1) Chloride Level 108 mmol/L (98-107) Carbon Dioxide Level 27 mmol/L (21-32) Anion Gap 9 (6-14) Blood Urea Nitrogen 20 mg/dL (8-26) Creatinine 1.6 mg/dL (0.7-1.3) Estimated GFR (Cockcroft-Gault) 52.9 Glucose Level 101 mg/dL (70-99) Calcium Level 8.2 mg/dL (8.5-10.1) Phosphorus Level 3.0 mg/dL (2.6-4.7) Magnesium Level 1.8 mg/dL (1.8-2.4) Albumin 2.6 g/dL (3.4-5.0) Review of Systems Review of Systems: Denies fever, denies shortness of breath, denies abdominal pain Assessment and Plan Assessmemt and Plan Problems Medical Problems: (1) Alcohol intoxication Status: Acute (2) Bandemia without diagnosis of specific infection Status: Acute (3) Hyperkalemia Status: Acute (4) Renal insufficiency Status: Acute (5) Upper GI bleed Status: Acute Comment Review of Relevant I have reviewed the following items hernandez (where applicable) has been applied. Medications: Current Medications Medications (Trade) Dose Ordered Sig/Camille Route PRN Reason Start Time Stop Time Status Last Admin Dose Admin Potassium Chloride/Water 100 ml @ 100 mls/hr Q1H IV 04/09/20 10:00 04/09/20 13:59 DC 04/09/20 13:28 Guaifenesin (Robitussin Dm) 10 ml PRN Q6HRS PRN PO COUGH 04/09/20 09:15 04/09/20 09:16 Pantoprazole Sodium (Protonix) 40 mg BIDAC PO 04/09/20 16:30 04/09/20 15:54 Potassium Phosphate 20 mmol/ Sodium Chloride 256.6667 ml @ 85.556 m... Q2H IV 04/09/20 15:00 04/09/20 18:59 DC 04/09/20 17:30 Justifications for Admission Other Justification NAS GREGORY MD Apr 10, 2020 07:20
[2020-04-10] MEDS: INSULIN LISPRO 300 UNITS/3 ML VIAL. SQ SCH (08:00)
[2020-04-10] MEDS: BENZOCAINE/MENTHOL LOZENGE. PO PRN (08:20)
[2020-04-10] MEDS: PANTOPRAZOLE 40 MG TABLET.DR. PO SCH ×2 (08:20→16:37)
[2020-04-10] MEDS: HYDROcodone/APAP 5/325MG 1 TAB TABLET PO PRN ×3 (08:20→23:25)
--- NOTE | 2020-04-10 09:57 | PDOC ---
DATE OF SERVICE: DOS: DATE: 04/10/20 TIME: 09:54 SUBJECTIVE ROS Follow-up for acute kidney injury Patient claims he is feeling well. Denies any new complaints. CVS: no Orthopnea, no CP RESP: no SOB, no PRESTON GI: no Nausea, no Vomiting : no Dysuria, no Urgency OBJECTIVE Vital Signs Vital Signs Date Time Temp Pulse Resp B/P (MAP) Pulse Ox O2 Delivery O2 Flow Rate FiO2 04/10/20 07:00 98.9 74 18 157/98 (117) 94 Room Air 98.9 04/09/20 10:14 4.0 I & 0 Intake and Output 04/10/20 07:00 Intake Total 1490 ml Output Total 2650 ml Balance -1160 ml Intake Oral 1490 ml Output Urine Total 2650 ml # Bowel Movements 1 PHYSICAL EXAM Physical Exam GEN: Much more alert and awake, Oriented x 3, In no distress, EYES: Sclera Anicteric Conjunctiva Normal EN: No EN Drainage, Mucous Membranes moist NECK: no JVD, min JVP, Supple, no Thyromegaly CVS: S1S2, ? Murmur, No Gallop, No Rub,no Edema RESP: no Rales, no Rhonchi,no Acc. Muscle Use GI: BS + ve, NO Bruit, Non Tender, Non Distended : no CVA tenderness, no Suprapubic Tenderness DIAGNOSIS/ASSESSMENT Assessment & Plan Acute kidney injury: Now much improved even off of IV fluids currently. Intravascular volume depletion: Appears to have resolved currently GEN: Much more alert and awake, Oriented x 3, In no distress, EYES: Sclera Anicteric Conjunctiva Normal EN: No EN Drainage, Mucous Membranes moist NECK: no JVD, min JVP, Supple, no Thyromegaly CVS: S1S2, ? Murmur, No Gallop, No Rub,no Edema RESP: no Rales, no Rhonchi,no Acc. Muscle Use GI: BS + ve, NO Bruit, Non Tender, Non Distended : no CVA tenderness, no Suprapubic Tenderness DIAGNOSIS/ASSESSMENT Assessment & Plan Acute kidney injury: Now much improved Hypokalemia; Hypocalcemia; Hypophosphatemia: Now all resolved, corrected, replaced Intravascular volume depletion: Recheck labs and change blood IV fluids as needed. Urine output is good Post GI bleed associated anemia: Iron saturations at 85%. Will defer to GI to evaluate for hemochromatosis if felt necessary Okay to discharge from renal standpoint. [facility] COMMENT/RELEVANT DATA Meds Current Medications Medications (Trade) Dose Ordered Sig/Camille Start Time Stop Time Status Last Admin Dose Admin Acetaminophen/ Hydrocodone Bitart (Lortab 5/325) 1 tab PRN Q4HRS PRN 04/06/20 02:15 04/10/20 08:20 1 TAB Albuterol Sulfate (Ventolin Neb Soln) 2.5 mg PRN Q4HRS PRN 04/08/20 05:45 04/09/20 11:25 2.5 MG Benzocaine (Ora-Jel) 1 jono PRN QID PRN 04/08/20 11:00 Calcium Gluconate (Calcium Gluconate) 1,000 mg 1X ONCE 04/06/20 09:00 04/06/20 09:01 DC 04/06/20 08:56 1,000 MG Ceftriaxone Sodium (Rocephin) 2 gm Q24H 04/07/20 12:00 04/08/20 10:48 DC 04/07/20 12:16 2 GM Chlordiazepoxide (Librium) 100 mg PRN Q1HR PRN 04/06/20 07:30 04/06/20 07:35 DC Clonidine HCl (Catapres) 0.1 mg PRN Q1HR PRN 04/06/20 07:30 Dextrose (Dextrose 50%-Water Syringe) 12.5 gm PRN Q15MIN PRN 04/06/20 08:45 Diphenhydramine HCl (Benadryl) 25 mg PRN Q15MIN PRN 04/06/20 07:30 Famotidine (Pepcid Vial) 20 mg 1X ONCE 04/05/20 19:00 04/05/20 19:01 DC 04/05/20 19:26 20 MG Folic Acid (Folic Acid) 1 mg DAILY 04/11/20 09:00 Furosemide (Lasix) 40 mg 1X ONCE 04/06/20 10:30 04/06/20 10:31 DC 04/06/20 10:17 40 MG Guaifenesin (Robitussin Dm) 10 ml PRN Q6HRS PRN 04/09/20 09:15 04/09/20 09:16 10 ML Haloperidol Lactate (Haldol Inj) 5 mg PRN Q4HRS PRN 04/06/20 07:30 Insulin Human Lispro (HumaLOG) 0-5 UNITS TIDWMEALS 04/06/20 12:00 04/08/20 17:19 2 UNITS Insulin Human Regular (HumuLIN R VIAL) 5 unit 1X ONCE 04/06/20 09:00 04/06/20 09:01 DC 04/06/20 09:00 5 UNIT Lidocaine HCl (Lidocaine Pf 2% Vial) 5 ml STK-MED ONCE 04/07/20 11:20 04/07/20 11:20 DC Lorazepam (Ativan Inj) 4 mg PRN Q15MIN PRN 04/06/20 07:30 UNV Lorazepam (Ativan) 8 mg PRN Q1HR PRN 04/06/20 07:30 Magnesium Sulfate 50 ml @ 25 mls/hr PRN DAILY PRN 04/06/20 12:45 Metoclopramide HCl (Reglan Vial) 10 mg 1X ONCE 04/05/20 19:00 04/05/20 19:01 DC 04/05/20 19:29 10 MG Multivitamins (Thera M Plus) 1 tab DAILY 04/11/20 09:00 Multivitamins 10 ml/Thiamine HCl 100 mg/Folic Acid 1 mg/Sodium Chloride 1,011.2 ml @ 100 mls/ hr DAILY 04/06/20 10:00 04/07/20 12:51 DC 04/07/20 12:16 100 MLS/HR Ondansetron HCl (Zofran) 4 mg PRN Q8HRS PRN 04/05/20 22:00 04/06/20 08:21 DC 04/05/20 23:42 4 MG Pantoprazole Sodium (PROTONIX VIAL for IV PUSH) 40 mg BIDWMEALS 04/07/20 17:00 04/09/20 11:49 DC 04/09/20 09:05 40 MG Pantoprazole Sodium (Protonix) 40 mg BIDAC 04/09/20 16:30 04/10/20 08:20 40 MG Pantoprazole Sodium 80 mg/ Sodium Chloride 100 ml @ 10 mls/hr Q10H 04/05/20 18:45 04/07/20 11:49 DC 04/07/20 00:07 10 MLS/HR Phenol (Chloraseptic) 1 spray PRN Q2HR PRN 04/08/20 11:00 04/08/20 12:42 1 SPRAY Piperacillin Sod/ Tazobactam Sod (Zosyn Per Pharmacy) 1 each PRN DAILY PRN 04/05/20 22:00 04/06/20 08:21 DC Piperacillin Sod/ Tazobactam Sod 2.25 gm/Sodium Chloride 50 ml @ 100 mls/hr Q6HRS 04/05/20 23:00 04/06/20 08:16 DC 04/06/20 05:10 100 MLS/HR Potassium Chloride 40 meq/ Sodium Chloride 1,020 ml @ 100 mls/hr [id number] 04/08/20 11:00 04/09/20 06:59 DC 04/08/20 23:43 100 MLS/HR Potassium Chloride/Water 100 ml @ 100 mls/hr Q1H 04/09/20 10:00 04/09/20 13:59 DC 04/09/20 13:28 100 MLS/HR Potassium Phosphate 20 mmol/ Sodium Chloride 256.6667 ml @ 85.556 m... Q2H 04/09/20 15:00 04/09/20 18:59 DC 04/09/20 17:30 85.556 MLS/HR Potassium Phosphate 40 mmol/ Sodium Chloride 263.3333 ml @ 50 mls/hr ONCE ONCE 04/09/20 14:00 04/09/20 19:15 UNV Potassium Chloride (Klor-Con) 40 meq 1X ONCE 04/08/20 05:45 04/08/20 05:46 DC 04/08/20 06:02 40 MEQ Propofol (Diprivan) 200 mg STK-MED ONCE 04/07/20 11:20 04/07/20 11:20 DC Ringer's Solution 1,000 ml @ 50 mls/hr Q20H 04/07/20 07:00 04/07/20 18:59 DC 04/07/20 10:01 50 MLS/HR Sodium Bicarbonate 50 meq/Sodium Phosphate 40 mmol/ Dextrose 1,063.3333 ml @ 100 mls/hr [id number] 04/07/20 14:00 04/08/20 10:58 DC 04/08/20 00:38 100 MLS/HR Sodium Bicarbonate (Sodium Bicarb Adult 8.4% Syr) 50 meq 1X ONCE 04/06/20 09:00 04/06/20 09:01 DC 04/06/20 08:56 50 MEQ Sodium Chloride 1,000 ml @ 1,000 mls/hr 1X ONCE 04/05/20 23:30 04/06/20 00:29 DC 04/06/20 00:49 1,000 MLS/HR Throat Lozenges (Cepacol Sore Throat Lozenge) 1 rosaura PRN Q2HRS PRN 04/08/20 11:00 04/10/20 08:20 1 ROSAURA Vancomycin HCl (Vanco Per Pharmacy) 1 each PRN DAILY PRN 04/05/20 22:00 04/06/20 08:21 DC 04/06/20 02:45 1 EACH Vancomycin HCl (Vancomycin Trough Level) 1 each 1X ONCE 04/09/20 22:30 04/06/20 08:21 DC Vancomycin HCl 1.75 gm/Sodium Chloride 500 ml @ 250 mls/hr 1X ONCE 04/05/20 23:00 04/06/20 00:59 DC 04/05/20 23:27 250 MLS/HR Vancomycin HCl 1 gm/Sodium Chloride 250 ml @ 250 mls/hr Q48H 04/07/20 23:00 04/06/20 08:21 DC Lab Laboratory Tests Test 04/09/20 11:34 04/09/20 16:31 04/10/20 03:30 04/10/20 05:00 Glucose (Fingerstick) 122 mg/dL (70-99) 143 mg/dL (70-99) White Blood Count 3.1 x10^3/uL (4.0-11.0) Red Blood Count 3.13 x10^6/uL (4.30-5.70) Hemoglobin 9.9 g/dL (13.0-17.5) Hematocrit 29.3 % (39.0-53.0) Mean Corpuscular Volume 94 fL (79-100) Mean Corpuscular Hemoglobin 32 pg (25-35) Mean Corpuscular Hemoglobin Concent 34 g/dL (31-37) Red Cell Distribution Width 13.6 % (11.5-14.5) Platelet Count 49 x10^3/uL (140-400) Neutrophils (%) (Auto) 59 % (31-73) Lymphocytes (%) (Auto) 28 % (24-48) Monocytes (%) (Auto) 9 % (0-9) Eosinophils (%) (Auto) 4 % (0-3) Basophils (%) (Auto) 0 % (0-3) Neutrophils # (Auto) 1.8 x10^3/uL (1.8-7.7) Lymphocytes # (Auto) 0.9 x10^3/uL (1.0-4.8) Monocytes # (Auto) 0.3 x10^3/uL (0.0-1.1) Eosinophils # (Auto) 0.1 x10^3/uL (0.0-0.7) Basophils # (Auto) 0.0 x10^3/uL (0.0-0.2) Sodium Level 144 mmol/L (136-145) Potassium Level 3.7 mmol/L (3.5-5.1) Chloride Level 108 mmol/L (98-107) Carbon Dioxide Level 27 mmol/L (21-32) Anion Gap 9 (6-14) Blood Urea Nitrogen 20 mg/dL (8-26) Creatinine 1.6 mg/dL (0.7-1.3) Estimated GFR (Cockcroft-Gault) 52.9 Glucose Level 101 mg/dL (70-99) Calcium Level 8.2 mg/dL (8.5-10.1) Phosphorus Level 3.0 mg/dL (2.6-4.7) Magnesium Level 1.8 mg/dL (1.8-2.4) Albumin 2.6 g/dL (3.4-5.0) Results All relevant outside records, renal labs, imaging studies, telemetry/EKG's were reviewed. Justicifation of Admission Dx: Justifications for Admission: Justification of Admission Dx: N/A ODILIA WEAVER MD Apr 10, 2020 09:57
[2020-04-10 10:41] VITALS: BP 151/82
[2020-04-10 12:13] LABS: % EOS 2 % (0-5); % LYMPHS 35 % (24-48); % MONOS 10 % (0-10); % SEGS 53 % (35-66); PLT ESTIMATE DECREASED (ADEQUATE)
[2020-04-10 12:14] LABS: OVALOCYTES OCC
[2020-04-10 14:25] VITALS: BP 134/85
[2020-04-10] MEDS: guaiFENesin DM 200MG/20MG 10 ML SYRUP PO PRN (18:25)
[2020-04-10 19:00] VITALS: BP 167/86
[2020-04-10 22:56] VITALS: BP 173/95
[2020-04-11 01:14] LABS: HEMOGLOBIN A1C 5.5 % (4.8-5.6)
[2020-04-11 02:52] VITALS: BP 157/79
[2020-04-11 05:33] LABS: BASO % 0 % (0-3); EOS # 0.1 x10^3/uL (0.0-0.7); EOS % 4 % (0-3); HEMOGLOBIN 8.9 g/dL (13.0-17.5); LYMPH # 0.6 x10^3/uL (1.0-4.8); LYMPH % 21 % (24-48); MEAN CORPUSCULAR HEMOGLOBIN 32 pg (25-35); MEAN CORPUSCULAR HGB CONC 34 g/dL (31-37); MEAN CORPUSCULAR VOLUME 93 fL (79-100); MONO # 0.5 x10^3/uL (0.0-1.1); MONO % 17 % (0-9); NEUT # 1.8 x10^3/uL (1.8-7.7); NEUT % 59 % (31-73); PLATELET COUNT 67 x10^3/uL (140-400); RED BLOOD COUNT 2.79 x10^6/uL (4.30-5.70); RED CELL DISTRIBUTION WIDTH 13.9 % (11.5-14.5); WHITE BLOOD COUNT 3.1 x10^3/uL (4.0-11.0)
[2020-04-11 06:11] LABS: ALBUMIN 2.6 g/dL (3.4-5.0); CALCIUM 8.2 mg/dL (8.5-10.1); CREATININE 1.5 mg/dL (0.7-1.3); PHOSPHORUS 3.6 mg/dL (2.6-4.7); POTASSIUM 3.5 mmol/L (3.5-5.1)
[2020-04-11 07:00] VITALS: BP 177/92
[2020-04-11] MEDS: PANTOPRAZOLE 40 MG TABLET.DR. PO SCH (07:53)
[2020-04-11] MEDS: ALBUTEROL SULFATE 2.5 MG/3 ML NEBU. NEB PRN (08:25)
[2020-04-11] MEDS ORDERED: FOLIC ACID 1 MG TABLET. PO SCH (09:00)
[2020-04-11] MEDS ORDERED: MULTIVITAMIN with MINERAL TABLET. PO SCH (09:00)
--- NOTE | 2020-04-11 09:55 | PDOC ---
DATE OF SERVICE DATE: 04/11/20 TIME: 09:55 SUBJECTIVE ROS states feeling better OBJECTIVE Vital Signs Vital Signs Date Time Temp Pulse Resp B/P (MAP) Pulse Ox O2 Delivery O2 Flow Rate FiO2 04/11/20 08:26 98 Room Air 04/11/20 07:00 98.9 76 19 177/92 (120) 98.9 04/10/20 08:00 4.0 I & 0 Intake and Output 04/11/20 07:00 Intake Total 1740 ml Output Total 401 ml Balance 1339 ml Intake Oral 1740 ml Output Urine Total 401 ml # Voids 4 # Bowel Movements 1 PHYSICAL EXAM Physical Exam General: Alert, Oriented X3, Cooperative, HEENT: PERRLA, EOMI Lungs: Clear to auscultation, Normal air movement Heart: RRR, no murmurs Cardiovascular: S1, S2 Abdomen: soft, NT Extremities: No clubbing, No cyanosis, no edema Skin: No rashes, No significant lesion Neuro: Normal speech, Normal tone, Sensation intact DIAGNOSIS/ASSESSMENT Assessment & Plan Acute kidney injury: Now much improved Hypokalemia; Hypocalcemia; Hypophosphatemia: Now all resolved, corrected, replaced Post GI bleed associated anemia: Iron saturations at 85%. Will defer to GI to evaluate Okay to discharge from renal standpoint. [facility] COMMENT/RELEVANT DATA Meds Current Medications Medications (Trade) Dose Ordered Sig/Camille Start Time Stop Time Status Last Admin Dose Admin Acetaminophen/ Hydrocodone Bitart (Lortab 5/325) 1 tab PRN Q4HRS PRN 04/06/20 02:15 04/10/20 23:25 1 TAB Albuterol Sulfate (Ventolin Neb Soln) 2.5 mg PRN Q4HRS PRN 04/08/20 05:45 04/11/20 08:25 2.5 MG Benzocaine (Ora-Jel) 1 jono PRN QID PRN 04/08/20 11:00 Calcium Gluconate (Calcium Gluconate) 1,000 mg 1X ONCE 04/06/20 09:00 04/06/20 09:01 DC 04/06/20 08:56 1,000 MG Ceftriaxone Sodium (Rocephin) 2 gm Q24H 04/07/20 12:00 04/08/20 10:48 DC 04/07/20 12:16 2 GM Chlordiazepoxide (Librium) 100 mg PRN Q1HR PRN 04/06/20 07:30 04/06/20 07:35 DC Clonidine HCl (Catapres) 0.1 mg PRN Q1HR PRN 04/06/20 07:30 Dextrose (Dextrose 50%-Water Syringe) 12.5 gm PRN Q15MIN PRN 04/06/20 08:45 Diphenhydramine HCl (Benadryl) 25 mg PRN Q15MIN PRN 04/06/20 07:30 Famotidine (Pepcid Vial) 20 mg 1X ONCE 04/05/20 19:00 04/05/20 19:01 DC 04/05/20 19:26 20 MG Folic Acid (Folic Acid) 1 mg DAILY 04/11/20 09:00 04/11/20 07:53 1 MG Furosemide (Lasix) 40 mg 1X ONCE 04/06/20 10:30 04/06/20 10:31 DC 04/06/20 10:17 40 MG Guaifenesin (Robitussin Dm) 10 ml PRN Q6HRS PRN 04/09/20 09:15 04/10/20 18:25 10 ML Haloperidol Lactate (Haldol Inj) 5 mg PRN Q4HRS PRN 04/06/20 07:30 Insulin Human Lispro (HumaLOG) 0-5 UNITS TIDWMEALS 04/06/20 12:00 04/10/20 10:09 DC 04/08/20 17:19 2 UNITS Insulin Human Regular (HumuLIN R VIAL) 5 unit 1X ONCE 04/06/20 09:00 04/06/20 09:01 DC 04/06/20 09:00 5 UNIT Lidocaine HCl (Lidocaine Pf 2% Vial) 5 ml STK-MED ONCE 04/07/20 11:20 04/07/20 11:20 DC Lorazepam (Ativan Inj) 4 mg PRN Q15MIN PRN 04/06/20 07:30 UNV Lorazepam (Ativan) 8 mg PRN Q1HR PRN 04/06/20 07:30 Magnesium Sulfate 50 ml @ 25 mls/hr PRN DAILY PRN 04/06/20 12:45 Metoclopramide HCl (Reglan Vial) 10 mg 1X ONCE 04/05/20 19:00 04/05/20 19:01 DC 04/05/20 19:29 10 MG Multivitamins (Thera M Plus) 1 tab DAILY 04/11/20 09:00 04/11/20 07:53 1 TAB Multivitamins 10 ml/Thiamine HCl 100 mg/Folic Acid 1 mg/Sodium Chloride 1,011.2 ml @ 100 mls/ hr DAILY 04/06/20 10:00 04/07/20 12:51 DC 04/07/20 12:16 100 MLS/HR Ondansetron HCl (Zofran) 4 mg PRN Q8HRS PRN 04/05/20 22:00 04/06/20 08:21 DC 04/05/20 23:42 4 MG Pantoprazole Sodium (PROTONIX VIAL for IV PUSH) 40 mg BIDWMEALS 04/07/20 17:00 04/09/20 11:49 DC 04/09/20 09:05 40 MG Pantoprazole Sodium (Protonix) 40 mg BIDAC 04/09/20 16:30 04/11/20 07:53 40 MG Pantoprazole Sodium 80 mg/ Sodium Chloride 100 ml @ 10 mls/hr Q10H 04/05/20 18:45 04/07/20 11:49 DC 04/07/20 00:07 10 MLS/HR Phenol (Chloraseptic) 1 spray PRN Q2HR PRN 04/08/20 11:00 04/08/20 12:42 1 SPRAY Piperacillin Sod/ Tazobactam Sod (Zosyn Per Pharmacy) 1 each PRN DAILY PRN 04/05/20 22:00 04/06/20 08:21 DC Piperacillin Sod/ Tazobactam Sod 2.25 gm/Sodium Chloride 50 ml @ 100 mls/hr Q6HRS 04/05/20 23:00 04/06/20 08:16 DC 04/06/20 05:10 100 MLS/HR Potassium Chloride 40 meq/ Sodium Chloride 1,020 ml @ 100 mls/hr [id number] 04/08/20 11:00 04/09/20 06:59 DC 04/08/20 23:43 100 MLS/HR Potassium Chloride/Water 100 ml @ 100 mls/hr Q1H 04/09/20 10:00 04/09/20 13:59 DC 04/09/20 13:28 100 MLS/HR Potassium Phosphate 20 mmol/ Sodium Chloride 256.6667 ml @ 85.556 m... Q2H 04/09/20 15:00 04/09/20 18:59 DC 04/09/20 17:30 85.556 MLS/HR Potassium Phosphate 40 mmol/ Sodium Chloride 263.3333 ml @ 50 mls/hr ONCE ONCE 04/09/20 14:00 04/09/20 19:15 UNV Potassium Chloride (Klor-Con) 40 meq 1X ONCE 04/08/20 05:45 04/08/20 05:46 DC 04/08/20 06:02 40 MEQ Propofol (Diprivan) 200 mg STK-MED ONCE 04/07/20 11:20 04/07/20 11:20 DC Ringer's Solution 1,000 ml @ 50 mls/hr Q20H 04/07/20 07:00 04/07/20 18:59 DC 04/07/20 10:01 50 MLS/HR Sodium Bicarbonate 50 meq/Sodium Phosphate 40 mmol/ Dextrose 1,063.3333 ml @ 100 mls/hr [id number] 04/07/20 14:00 04/08/20 10:58 DC 04/08/20 00:38 100 MLS/HR Sodium Bicarbonate (Sodium Bicarb Adult 8.4% Syr) 50 meq 1X ONCE 04/06/20 09:00 04/06/20 09:01 DC 04/06/20 08:56 50 MEQ Sodium Chloride 1,000 ml @ 1,000 mls/hr 1X ONCE 04/05/20 23:30 04/06/20 00:29 DC 04/06/20 00:49 1,000 MLS/HR Throat Lozenges (Cepacol Sore Throat Lozenge) 1 rosaura PRN Q2HRS PRN 04/08/20 11:00 04/10/20 08:20 1 ROSAURA Vancomycin HCl (Vanco Per Pharmacy) 1 each PRN DAILY PRN 04/05/20 22:00 04/06/20 08:21 DC 04/06/20 02:45 1 EACH Vancomycin HCl (Vancomycin Trough Level) 1 each 1X ONCE 04/09/20 22:30 04/06/20 08:21 DC Vancomycin HCl 1.75 gm/Sodium Chloride 500 ml @ 250 mls/hr 1X ONCE 04/05/20 23:00 04/06/20 00:59 DC 04/05/20 23:27 250 MLS/HR Vancomycin HCl 1 gm/Sodium Chloride 250 ml @ 250 mls/hr Q48H 04/07/20 23:00 04/06/20 08:21 DC Lab Laboratory Tests Test 04/11/20 05:00 White Blood Count 3.1 x10^3/uL (4.0-11.0) Red Blood Count 2.79 x10^6/uL (4.30-5.70) Hemoglobin 8.9 g/dL (13.0-17.5) Hematocrit 26.0 % (39.0-53.0) Mean Corpuscular Volume 93 fL (79-100) Mean Corpuscular Hemoglobin 32 pg (25-35) Mean Corpuscular Hemoglobin Concent 34 g/dL (31-37) Red Cell Distribution Width 13.9 % (11.5-14.5) Platelet Count 67 x10^3/uL (140-400) Neutrophils (%) (Auto) 59 % (31-73) Lymphocytes (%) (Auto) 21 % (24-48) Monocytes (%) (Auto) 17 % (0-9) Eosinophils (%) (Auto) 4 % (0-3) Basophils (%) (Auto) 0 % (0-3) Neutrophils # (Auto) 1.8 x10^3/uL (1.8-7.7) Lymphocytes # (Auto) 0.6 x10^3/uL (1.0-4.8) Monocytes # (Auto) 0.5 x10^3/uL (0.0-1.1) Eosinophils # (Auto) 0.1 x10^3/uL (0.0-0.7) Basophils # (Auto) 0.0 x10^3/uL (0.0-0.2) Sodium Level 142 mmol/L (136-145) Potassium Level 3.5 mmol/L (3.5-5.1) Chloride Level 107 mmol/L (98-107) Carbon Dioxide Level 28 mmol/L (21-32) Anion Gap 7 (6-14) Blood Urea Nitrogen 19 mg/dL (8-26) Creatinine 1.5 mg/dL (0.7-1.3) Estimated GFR (Cockcroft-Gault) 57.0 Glucose Level 106 mg/dL (70-99) Calcium Level 8.2 mg/dL (8.5-10.1) Phosphorus Level 3.6 mg/dL (2.6-4.7) Magnesium Level 1.7 mg/dL (1.8-2.4) Albumin 2.6 g/dL (3.4-5.0) Results All relevant outside records, renal labs, imaging studies, telemetry/EKG's were reviewed. Justicifation of Admission Dx: Justifications for Admission: Justification of Admission Dx: N/A LETICIA IBARRA MD Apr 11, 2020 09:55
[2020-04-11 10:36] VITALS: BP 177/97
--- NOTE | 2020-04-11 11:03 | PDOC ---
Date of Service: DATE: 04/11/20 TIME: 11:00 Subjective: Subjective: Feeling better - eating more, no longer has sore throat, no bleeding. Objective: Objective: D/w Dr. Lane - home soon? Vital Signs: Vital Signs Date Time Temp Pulse Resp B/P (MAP) Pulse Ox O2 Delivery O2 Flow Rate FiO2 04/11/20 10:36 98.1 89 18 177/97 (123) 95 Room Air 98.1 04/10/20 08:00 4.0 Labs: Laboratory Tests Test 04/11/20 05:00 White Blood Count 3.1 x10^3/uL Red Blood Count 2.79 x10^6/uL Hemoglobin 8.9 g/dL Hematocrit 26.0 % Mean Corpuscular Volume 93 fL Mean Corpuscular Hemoglobin 32 pg Mean Corpuscular Hemoglobin Concent 34 g/dL Red Cell Distribution Width 13.9 % Platelet Count 67 x10^3/uL Neutrophils (%) (Auto) 59 % Lymphocytes (%) (Auto) 21 % Monocytes (%) (Auto) 17 % Eosinophils (%) (Auto) 4 % Basophils (%) (Auto) 0 % Neutrophils # (Auto) 1.8 x10^3/uL Lymphocytes # (Auto) 0.6 x10^3/uL Monocytes # (Auto) 0.5 x10^3/uL Eosinophils # (Auto) 0.1 x10^3/uL Basophils # (Auto) 0.0 x10^3/uL Sodium Level 142 mmol/L Potassium Level 3.5 mmol/L Chloride Level 107 mmol/L Carbon Dioxide Level 28 mmol/L Anion Gap 7 Blood Urea Nitrogen 19 mg/dL Creatinine 1.5 mg/dL Estimated GFR (Cockcroft-Gault) 57.0 Glucose Level 106 mg/dL Calcium Level 8.2 mg/dL Phosphorus Level 3.6 mg/dL Magnesium Level 1.7 mg/dL Albumin 2.6 g/dL URINE CULTURE Final Final No Growth on 04/08/20 at 1038 BLOOD CULTURE Final NO GROWTH AFTER 5 DAYS PE: GEN: NAD LUNGS: CTAB HEART: RRR ABD: NABS, S/ND/NT NEURO/PSYCH: A & O 3 A/P: Alcoholism Severe esophagitis, gastric erythema (biopsy pending) Pancytopenia NICKI - better COVID-19 negative 04/06 -- DC per primary on PPI. No alcohol. Follow-up re: biopsies. Justicifation of Admission Dx: Justifications for Admission: Justification of Admission Dx: N/A TIMA MATTHEWS Apr 11, 2020 11:03
[2020-04-11] MEDS ORDERED: Folic Acid PO (11:06)
[2020-04-11] MEDS ORDERED: PANT40TA77 PO (11:06)
[2020-04-11] MEDS: HYDROcodone/APAP 5/325MG 1 TAB TABLET PO PRN (11:07)
--- NOTE | 2020-04-11 11:07 | DISCH ---
DISCHARGE INSTRUCTIONS Condition on Discharge Condition on Discharge: Stable Activity After Discharge Activity Instructions for Disc: No restrictions Diet after Discharge Diet after Discharge: GI Soft Contacting the DR. after DC Call your doctor for: If your condition worsens (Please abstain from alcohol indefinitely. Please join AA JOHN) Follow-Up Follow up with: PCP within 2 weeks of discharge Follow Up With: Gastroenterology as needed JOSE MONROE MD Apr 11, 2020 11:07
--- NOTE | 2020-04-11 11:18 | NUR ---
SS following up with discharge planning. SS reviewed pt chart and discussed with pt RN. Pt is currently on room air. Ambulating improving. COVID19 negative. Discharge order on the chart for home with self care. [facility]
[2020-04-11] MEDS ORDERED: MULT-114 PO (13:00)
--- NOTE | 2020-04-11 14:00 | PDOC3 ---
[facility]-Discharge Summary Date of Admission: Date of Admission: Apr 06, 2020 Date of Discharge: Date of Discharge: Apr 11, 2020 Discharge Diagnosis: Discharge Diagnosis: Upper GI bleed Leukocytosis Bandemia NICKI Lactic acidosis Alcohol intoxication History of alcohol abuse Transaminitis Physical debility Hospital Course: Hospital Course: 64 male with past medical history of alcoholism, who presents to the ER with complaint of vomiting dark coffee-ground emesis yesterday. Patient reports associated right lower quadrant abdominal pain, diarrhea, and a syncopal episode yesterday at home. He denies head injury or loss of consciousness. Patient reportedly has increased his alcohol intake over the past 2 weeks, drinking 1-2 pints of vodka daily. He denies history of liver cirrhosis, or history of kidney disease. He denies any abdominal distention, dark stools, or fever. 04/10/2020 Patient seen and evaluated bedside. Afebrile. Sore throat and weakness improving. He is working with PT/OT, recommending acute rehab. Patient feels his strength is improving he may be to be able to discharge home tomorrow. Will reevaluate on Saturday with social sciences professor for possible placement versus home with self-care. Switch to oral PPIs when he is able to tolerate regular diet. Eating soft diet today, applesauce. Denies abdominal pain, denies fever. 04/09/2020 Patient evaluated bedside. Afebrile. Occupational Therapy recommending SNF. Potassium improving. Sore throat improving, tolerated soft diet this morning. Denies abdominal pain. Discharge disposition may be SNF Saturday or home with home health depending on how weakness progresses. 04/08/2020 Patient seen status post EGD yesterday showing severe esophagitis, biopsy taken. Discussed returning to AA meetings, alcohol withdrawal protocol in place. Complains of some weakness today, encourage working with PT. Tolerating clears without abdominal pain, nausea, or vomiting. Still with sore throat following EGD that is limiting his oral intake. Benzocaine, Cepacol, Chloraseptic as needed. Advance liquid diet as tolerated. 04/07/2020 Patient afebrile overnight. Potassium improved with Lasix. CT abdomen pelvis showing mild diffuse colitis, still with some right lower quadrant abdominal pain. Continue with empiric antibiotics. We will keep n.p.o. for anticipated EGD today. Patient seen and examined on day of discharge. Patient will need to abstain from alcohol indefinitely. Patient will also need to follow-up closely with hemoglobin to make sure that it is stable. Patient also known follow-up with gastroenterology. Patient will need to take Protonix daily. Disposition: Disposition/Orders: D/C to Home Activity: Activity: Resume previous activity Diet: Diet: Cardiac Medications: Home Meds Active Scripts [Folic Acid] 1 MG TABLET No Conflict Check, 1 MG PO DAILY for ETOH USE for 30 Days, #30 Prov:JOSE MONROE MD 04/11/20 Pantoprazole Sodium (PANTOPRAZOLE SODIUM ) 40 Mg Tablet.dr, 40 MG PO BIDAC for GI BLEED for 30 Days, #60 TAB.SR Prov:JOSE MONROE MD 04/11/20 Reported Medications Multivitamin With Minerals (MULTIVITAMINS WITH MINERALS) 1 Each Tablet, 1 TAB PO DAILY for for 30 Days, #30 TAB 0 Refills 04/11/20 Scheduled Multivitamin With Minerals (Multivitamins With Minerals), 1 TAB PO DAILY, (Reported) Pantoprazole Sodium (Pantoprazole Sodium ), 40 MG PO BIDAC [Folic Acid], 1 MG PO DAILY Total Time: Total Time: Total time spent was 40 minutes in preparing scripts, discharge planning with SWI and RN and preparing this discharge summary Patient seen and examined on day of discharge. No acute abnormal findings. Justicifation of Admission Dx: Justifications for Admission: Justification of Admission Dx: N/A JOSE MONROE MD Apr 11, 2020 14:00
--- NOTE | 2020-04-11 14:00 | NUR ---
Discharge Note: JOSE ROBERTO MANCINI [place] Discharge instructions and discharge home medications reviewed with Patient and a copy given. All questions have been answered and understanding verbalized. The following instructions and handouts were given: Upper GI Bleed, Hyperkalemia, NICKI, and Protonix Discontinued lines and drains: Peripheral IV intact. Patient discharged to Home or Self Care with Self via Wheelchair
--- NOTE | 2020-04-11 16:06 | PATHOLOGY ---
[facility] Accession Number: [id number] . 01 Material submitted: . stomach - ANTRUM BIOPSY . 01 Clinical history: . UPPER GI BLEED NICKI, HYPERKALEMIA . 02 Diagnosis: Gastric biopsy, antrum: - Congestion and focal slight chronic inflammation. (JPM:helen; 04/11/2020) S 04/11/2020 1055 Local . 02 Comment: Sections of the gastric antral biopsy show congestion and focal slight chronic inflammation. A properly controlled immunoperoxidase stain for Helicobacter is negative for Helicobacter organisms. There is no evidence of malignancy. (JPM:helen; 04/11/2020) . Special stain performed: Immunoperoxidase stain for Helicobacter on A1 . 02 Electronically signed: . Umair Trotter MD, Pathologist NPI- [id number] . 01 Gross description: . The specimen is received in formalin, labeled "Pepe Luer, antrum biopsy". Received is a segment of pale kilpatrick soft tissue measuring 0.8 cm in maximum dimensions. The specimen is submitted entirely in cassette A1. ([facility]; 04/08/2020) QAC/QAC 04/11/2020 1051 Local . 02 Pathologist provided ICD-10: K31.89, K29.50 . 02 CPT . 927553, [id number] Specimen Comment: A courtesy copy of this report has been sent to [phone] Specimen Comment: Report sent to Performed at: 01 [facility] [address], [place] [id number] MD Ricardo Hodges MD Phone: [phone] Performed at: 02 [facility] [address] [place], [place] [id number] MD Umair Trotter MD Phone: [phone]
== END 2020-04-11 14:00 | disposition home or self-care (01) | DRG 368 ==
LOC: ER 18:06 → 2 NORTH 18:30
PROVIDERS: ADMIT Internal Medicine; ATTEND Internal Medicine
PROC: 0DB68ZX Excision of Stomach, Via Natural or Artificial Opening Endoscopic, Diagnostic (ICD-10-PCS; principal; 2020-04-07 11:30)
DX: K20.91 Esophagitis, unspecified with bleeding (principal); N17.0 Acute kidney failure with tubular necrosis; D61.818 Other pancytopenia; E87.2 Acidosis; D68.9 Coagulation defect, unspecified; E87.0 Hyperosmolality and hypernatremia; D72.825 Bandemia; E87.5 Hyperkalemia; E87.6 Hypokalemia; F10.120 Alcohol abuse with intoxication, uncomplicated; Y90.6 Blood alcohol level of 120-199 mg/100 ml; F17.210 Nicotine dependence, cigarettes, uncomplicated; F32.9 Major depressive disorder, single episode, unspecified; F43.10 Post-traumatic stress disorder, unspecified; G89.29 Other chronic pain; I12.9 Hypertensive chronic kidney disease with stage 1 through stage 4 chronic kidney disease, or unspecified chronic kidney disease; K52.9 Noninfective gastroenteritis and colitis, unspecified; K76.0 Fatty (change of) liver, not elsewhere classified; N18.9 Chronic kidney disease, unspecified; Z20.828 Contact with and (suspected) exposure to other viral communicable diseases; F41.9 Anxiety disorder, unspecified; E86.9 Volume depletion, unspecified; E83.51 Hypocalcemia; E83.39 Other disorders of phosphorus metabolism; R13.10 Dysphagia, unspecified; Z79.899 Other long term (current) drug therapy
CPT/HCPCS: 36415; 43239; 70450; 71045; 74176; 80048; 80053; 80069; 80076; 81001; 82274; 82550; 82607; 82962; 83036; 83540; 83550; 83605; 83735; 84100; 84132; 84145; 84300; 85007; 85025; 85027; 85610; 85730; 86140; 86850; 86900; 86901; 87040; 87086; 87426; 94640; 96365; 96366; 96375; C9113; G0480; J0610; J0696; J1815; J1940; J2060; J2405; J2543; J2704; J2765; J3370; J3411; J3480; J3490; J7030; J7040; J7050; J7060; J7120; U0003; 97110-GO; 97116-GP; 97530-GO; 97535-GO; 99285-25; G0378; J7613